=== PATIENT | female | born 2000 | race Caucasian/White ===

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

== ENCOUNTER 2021-04-01 10:03 | Emergency (ER) | payer BC, MEDICAID, SELFPAY ==
[2021-04-01 10:41] VITALS: BP 147/87; PULSE 78; RESP 15; TEMP 37.1; O2SAT 98; BMI 51.6
--- NOTE | 2021-04-01 11:29 | ED_ITS ---
HPI - Abdominal Pain General: Chief Complaint: Abdominal Pain Stated Complaint: ABD PAINS Time Seen by Provider: 04/01/21 11:26 History of Present Illness: HPI narrative: Generalized abdominal pain since last night. Is having some urinary frequency. Has felt nauseous. Has not vomited. Has no diarrhea. Has no fever chills or other related problems. Patient able go to work today due to abdominal discomfort. Patient has history of cholecystectomy MD elicited complaint: abdominal pain Pertinent past history: other (Gallbladder removal) Onset (ago): hour(s) Pain Consistency: constant Location: Diffuse Severity: moderate Quality: aching Radiation: none Migration to: no migration Exacerbating factors: nothing Relieving factors: nothing Associated Symptoms: Reports no associated symptoms; Denies chills, fever(s), nausea and vomiting Review of Systems Const: Denies: fever(s), chills or body aches Eyes: Denies: change in vision or blurry vision ENMT: Denies: throat pain or nasal congestion Card: Denies: chest pain or dyspnea on exertion Resp: Denies: dyspnea, productive cough or non-productive cough GI: Reports: abdominal pain; Denies: nausea or vomiting : Reports: urinary frequency Musc: Denies: extremity pain Skin/Breast: Denies: rash Neuro: Denies: headache(s) Psych: Denies: anxiety or depression [place]/Lymph: Denies: easy bruising PFSH ED PFSH: Family History (Updated 12/25/19 @ 04:07 by Marya Bronson RN) Father Hypertension Mother Hypertension Social History Smoking and tobacco status: never smoked Physical Exam Const: COMMON NORMALS: no acute distress, average body habitus and patient oriented x3 HENMT: COMMON NORMALS: normocephalic HEAD & SCALP: normal to inspection and normocephalic FACE & SINUS: normal facial exam Eye: COMMON NORMALS: conjunctivae normal GENERAL EYE: appearance normal, both eyes and all related structures CONJUNCTIVA: Yes conjunctivae normal Neck/C-Spine: COMMON NORMALS: no JVD Chest: COMMONS NORMALS: normal inspection of the chest Resp: COMMON NORMALS: normal respiratory effort and clear to auscultation bilaterally AUSCULTATION: clear to auscultation bilaterally Cardio: COMMON NORMALS: no JVD, regular rate and regular rhythm RATE: regular rate RHYTHM: regular rhythm GI: COMMON NORMALS: Normal to inspection, nondistended, normoactive bowel sounds present PALPATION: Yes Tenderness to palpation present (GI) (suprapub ic) Extremity: COMMON NORMALS: normal to inspection and full ROM Neuro: COMMON NORMALS: patient oriented x3 Course Vital Signs: Vital signs: Vital Signs Temperature 98.8 F 04/01/21 10:41 Pulse Rate 76 04/01/21 13:34 Respiratory Rate 16 04/01/21 13:34 Blood Pressure 142/94 04/01/21 13:34 Pulse Oximetry 100 04/01/21 13:34 MDM - Abdominal Pain MDM Narrative: Medical decision making narrative: Patient's labs show urinary tract infection consistent with clinical presentation. Diagnosis was discussed with patient. Instruction was provided patient to follow-up primary care provider. Case management was contacted to set up appoint with primary care provider. Lab Data: Labs: Lab Results 04/01/21 04/01/21 04/01/21 11:51 11:51 12:04 WBC 5.1 10^3/uL 10^3/ uL (4.5-13.0) RBC 5.25 10^6/uL 10^6 /uL (4.1-5.3) Hgb 14.0 g/dL g/dL (11.5-15.3) Hct 43.3 % % (37.0-47.0) MCV 82.5 fl fl (81-99) MCH 26.7 pg L pg (28.0-34.0) MCHC 32.3 g/dL g/dL (30.0-36.0) RDW 13.7 % % (12.1-15.1) Plt Count 298 10^3/cmm 10^3 /cmm (130-400) MPV 9.4 fL fL (7.4-10.4) Neut % (Auto) 72.9 % % Lymph % (Auto) 19.5 % % [place] % (Auto) 6.8 % % Eos % (Auto) 0.4 % % Baso % (Auto) 0.2 % % Neut # (Auto) 3.74 10^3/uL 10^3 /uL (1.8-8.0) Lymph # (Auto) 1.0 10^3/uL L 10^ 3/uL (1.5-6.5) [place] # (Auto) 0.4 10^3/uL 10^3/ uL (0.2-0.9) Eos # (Auto) 0.0 10^3/uL 10^3/ uL (0.0-0.8) Baso # (Auto) 0.0 10^3/uL 10^3/ uL (0.0-0.1) Nucleated RBC % (a uto) 0 % % Nucleated RBCs # 0.0 /100WBC /100W BC Sodium Potassium Chloride Carbon Dioxide Anion Gap BUN Creatinine GFR Calculation Glucose Calculated Osmolal ity Calcium Total Bilirubin AST ALT Alkaline Phosphata se Total Protein Albumin Globulin Lipase HCG, Qual Negative (Negative) Urine Color Yellow (Yellow) Urine Appearance Cloudy (CLEAR) Urine pH 5 (5-7) Ur Specific Gravit y 1.020 (1.005-1.030) Urine Protein Neg (Negative) Urine Glucose (UA) Norm (Normal) Urine Ketones 1+ H (Negative) Urine Blood 3+ H (Negative) Urine Nitrate Positive H (Negative) Urine Bilirubin Neg (Negative) Urine Urobilinogen Norm mg/dL mg/dL (Negative) Ur Leukocyte Chikis ase 2+ H (Negative) Urine RBC 5-10 /hpf H /hpf (0-2) Urine WBC Too numerous to c nt /hpf H /hpf (0-5) Ur Squamous Epith Cells 5-10 /hpf H /hpf (0-5) Amorphous Sediment Not Reportable Urine Bacteria 4+ /hpf H /hpf (NONE) Urine Mucus 1+ /hpf /hpf 04/01/21 12:04 WBC RBC Hgb Hct MCV MCH MCHC RDW Plt Count MPV Neut % (Auto) Lymph % (Auto) [place] % (Auto) Eos % (Auto) Baso % (Auto) Neut # (Auto) Lymph # (Auto) [place] # (Auto) Eos # (Auto) Baso # (Auto) Nucleated RBC % (a uto) Nucleated RBCs # Sodium 139 mmol/L mmol/L (136-145) Potassium 3.9 mmol/L mmol/L (3.5-5.1) Chloride 103 mmol/L mmol/L (98-107) Carbon Dioxide 25 mmol/L mmol/L (22-29) Anion Gap 14.9 (5-19) BUN 7 mg/dL mg/dL (6-20) Creatinine 0.6 mg/dL mg/dL (0.5-0.9) GFR Calculation 128.8 mL/min mL/m in (90-130) Glucose 70 mg/dL mg/dL (65-115) Calculated Osmolal ity 284 mOsm/kg L mOs m/kg (285-295) Calcium 9.1 mg/dL mg/dL (8.5-10.5) Total Bilirubin 0.3 mg/dL mg/dL (0.15-1.2) AST 15 U/L U/L (0-32) ALT 11 U/L U/L (0-33) Alkaline Phosphata se 127 IU/L H IU/L (35-105) Total Protein 7.9 g/dL g/dL (6.6-8.7) Albumin 4.1 g/dL g/dL (3.5-5.2) Globulin 3.8 g/dL g/dL (1.3-4.6) Lipase 17 U/L U/L (13-60) HCG, Qual Urine Color Urine Appearance Urine pH Ur Specific Gravit y Urine Protein Urine Glucose (UA) Urine Ketones Urine Blood Urine Nitrate Urine Bilirubin Urine Urobilinogen Ur Leukocyte Chikis ase Urine RBC Urine WBC Ur Squamous Epith Cells Amorphous Sediment Urine Bacteria Urine Mucus Discharge Plan Discharge Patient Disposition: Home Clinical Impression: UTI (urinary tract infection) Qualifiers: Urinary tract infection type: acute cystitis Hematuria presence: with hematuria Qualified Code(s): N30.01 - Acute cystitis with hematuria Condition: Stable Prescriptions: New cephalexin 500 mg capsule 500 mg PO Q8H 7 Days Qty: 21 RF: 0 No Action Tylenol Ex Str Rapid Release 500 mg Tablet 1,000 mg PO Q4H PRN (Reason: Pain) RF: 0 ibuprofen 200 mg Tablet 200 mg PO Q4H PRN (Reason: Pain) RF: 0 Discharge Orders: Discharge ED (Routine); Ordered 04/01/21 Ordered By: Christiano Liang Referrals: Yudelka Arroyo FNP [Primary Care Provider] - Discharge Diet: Usual diet Discharge Activity: Resume usual activity Patient Instructions: Urinary Tract Infection in Women (ED) Activity Restrictions/Additional Instructions: Follow-up with medical provider as directed. Take medications as prescribed. Return to the ER or your medical provider if condition worsens. Please read and understand discharge instructions. If any questions ask please. Follow-up your primary care provider in 1 week and repeat urine lab test to make sure infection is cleared up. Stand Alone Forms: Work/School Release Coding Level of Care Code ED Superintendent Renting Managing for Jazz[employer] Fwd Exam Comprehensive
--- NOTE | 2021-04-01 11:57 | PC.PHAR ---
PT STATES SHE TAKES CARE OF HER OWN MEDICATIONS-PT STATES SHE HAS SOME KIND OF IMPLANT FOR HER CONTROL BUT IS UNSURE OF THE NAME OF IT
[2021-04-01] MEDS: sodium chloride 0.9% 1,000 ML 999 ML IV (12:07)
[2021-04-01 12:12] LABS: Basophils % 0.2 %; Eosinophils % 0.4 %; Hematocrit 43.3 % (37.0-47.0); Lymphocytes % 19.5 %; Mean Corpuscular HGB Conc 32.3 g/dL (30.0-36.0); Mean Corpuscular Hemoglobin 26.7 pg (28.0-34.0); Mean Corpuscular Volume 82.5 fl (81-99); Mean Platelet Volume 9.4 fL (7.4-10.4); Monocytes # 0.4 10^3/uL (0.2-0.9); Monocytes % 6.8 %; Neutrophils # 3.74 10^3/uL (1.8-8.0); Neutrophils % 72.9 %; Nucleated Red Blood Cells % 0 %; Platelet Count 298 10^3/cmm (130-400); Red Blood Count 5.25 10^6/uL (4.1-5.3); Red Cell Distribution Width 13.7 % (12.1-15.1); White Blood Count 5.1 10^3/uL (4.5-13.0)
[2021-04-01 12:16] LABS: HCG Qualitative Urine. Negative (Negative)
[2021-04-01 12:17] LABS: Add Urine Microscopic? YES; Bilirubin Urine Neg (Negative); Blood Urine 3+ (Negative); Glucose Urine UA Norm (Normal); Ketones Urine 1+ (Negative); Leukocyte Esterase Urine 2+ (Negative); Nitrate Urine Positive (Negative); Protein Urine Neg (Negative); Urine Appearance Cloudy (CLEAR); Urine Color Yellow (Yellow); Urobilinogen Urine Norm (Negative); pH Urine 5 (5-7)
[2021-04-01 12:34] LABS: Add Urine Culture? Yes; Bacteria Urine 4+ /hpf; Mucus Urine 1+ /hpf; WBC Urine TOO NUMEROUS TO CNT /hpf (0-5)
[2021-04-01] MEDS: ondansetron 4 MG Tablet PO (12:52)
[2021-04-01] MEDS: cephALEXin 500 mg Capsule PO (12:52)
[2021-04-01 12:54] LABS: Alanine Aminotransferase 11 U/L (0-33); Albumin Level 4.1 g/dL (3.5-5.2); Alkaline Phosphatase 127 IU/L (35-105); Anion Gap 14.9 (5-19); Aspartate Amino Transferase 15 U/L (0-32); Blood Urea Nitrogen 7 mg/dL (6-20); Calcium 9.1 mg/dL (8.5-10.5); Carbon Dioxide 25 mmol/L (22-29); Chloride 103 mmol/L (98-107); Globulin 3.8 g/dL (1.3-4.6); Glomerular Filtration Rate 128.8 mL/min (90-130); Glucose 70 mg/dL (65-115); Lipase 17 U/L (13-60); Osmolality Calculated 284 mOsm/kg (285-295); Potassium 3.9 mmol/L (3.5-5.1); Sodium 139 mmol/L (136-145); Total Bilirubin 0.3 mg/dL (0.15-1.2); Total Protein 7.9 g/dL (6.6-8.7)
[2021-04-01 13:34] VITALS: BP 142/94; PULSE 76; RESP 16; O2SAT 100
== END 2021-04-01 13:37 | disposition home or self-care (01) ==
PROVIDERS: Emergency Provider Nurse Practitioner Family; PCP Registered Nurse
DX: N30.01 Acute cystitis with hematuria (principal)
CPT/HCPCS: 80053; 81001; 81025; 83690; 85025; 87077; 87086; 87186; 96360; 99283; J7030; Q0162

== ENCOUNTER 2021-04-03 08:28 | Emergency (ER) | payer BC, MEDICAID, SELFPAY ==
[2021-04-03 08:53] VITALS: BP 108/76; PULSE 90; RESP 19; TEMP 36.8; O2SAT 97; BMI 51.6
--- NOTE | 2021-04-03 09:01 | W.ED.ABDPA2 ---
Documented by User: IDRIS Calzada 04/03/21 14:59 HPI - Abdominal Pain General: Chief Complaint: Abdominal Pain Stated Complaint: ABD PAIN:SEEN YESTERDAY FOR SAME/WORSE TODAY Time Seen by Provider: 04/03/21 08:46 History of Present Illness: HPI narrative: Patient is a 20-year-old female who comes to the ED with abdominal pain. Patient was seen here on April 01 for same complaint. She was diagnosed with a UTI and discharged home with cephalexin. Patient says the prescription for cephalexin was not in her discharge paperwork so she was discharged home without any antibiotic and has not taken an antibiotic. Patient says her symptoms first started 4 days ago. She has some diarrhea and nausea but denies any emesis. She has decreased appetite and says any food makes her symptoms worse. Last night she had multiple episodes of diarrhea throughout the night was unable to get much sleep. She says her abdominal pain is generalized throughout her abdomen but endorses some right-sided tenderness along with epigastric pain as well. She has not had any episodes of emesis but states she feels very nauseous. Denies any fever, chills, dysuria, hematuria, blood in stool. She has had her gallbladder removed. Associated Symptoms: Reports diarrhea and nausea; Denies chills, constipation, dysuria, fever(s), hematochezia, hematuria and vomiting Review of Systems Const: Denies: fever(s), chills or fatigue Eyes: Denies: change in vision or eye discomfort ENMT: Denies: throat pain, odynophagia, nasal discharge or nasal congestion Card: Denies: chest pain, palpitations, edema, swelling of feet/ankles, dyspnea on exertion or orthopnea Resp: Denies: dyspnea, productive cough or non-productive cough GI: Reports: abdominal pain, nausea and diarrhea; Denies: vomiting, constipation or hematochezia : Denies: flank pain, dysuria or hematuria Musc: Denies: neck pain, back pain or extremity swelling Skin/Breast: Denies: rash or new lesions Neuro: Denies: headache(s), numbness in extremities or weakness in extremities PFS ED PFSH: Surgical History History of cholecystectomy Family History Father Hypertension Mother Hypertension Social History Smoking and tobacco status: never smoked Physical Exam Const: COMMON NORMALS: no acute distress, patient oriented x3 and alert GENERAL APPEARANCE: cooperative and comfortable NUTRITIONAL APPEARANCE: obese HENMT: COMMON NORMALS: normocephalic HEAD & SCALP: normocephalic MOUTH: Normal oral and palatal mucosa present THROAT: posterior oropharynx normal and uvula midline Eye: COMMON NORMALS: Equal, round and reactive pupils present PUPIL: Yes Equal, round and reactive pupils present Neck/C-Spine: COMMON NORMALS: supple GENERAL: Yes normal visual inspection Resp: COMMON NORMALS: normal respiratory effort, No retractions, No use of accessory muscles and clear to auscultation bilaterally AUSCULTATION: clear to auscultation bilaterally Cardio: COMMON NORMALS: regular rate, regular rhythm, S1 normal heart sound present, S2 normal heart sound present, No gallops present (Cardio), No clicks present (Cardio), No murmurs present (Cardio) and Peripheral pulses 2+ throughout RATE: regular rate RHYTHM: regular rhythm HEART SOUNDS: S1 normal heart sound present and S2 normal heart sound present PERIPHERAL PULSES: Peripheral pulses 2+ throughout GI: COMMON NORMALS: Normal to inspection, nondistended, normoactive bowel sounds present, Soft to palpation and no masses INSPECTION: Yes central obesity PALPATION: Yes Soft to palpation and Yes Tenderness to palpation present (GI) (generalized abdominal tenderness) Details: RLQ (Positive McBurney's point) and other (epigastric tenderness) : COMMON NORMALS: Yes no CVA tenderness BLADDER/KIDNEY EXAM: Yes no CVA tenderness Back/Pelvis: COMMON NORMALS: no CVA tenderness Neuro: COMMON NORMALS: patient oriented x3 SENSORIUM/ORIENTATION: Yes alert GAIT: Yes Normal gait present Skin: GENERAL SKIN EXAM: dry skin Course Reevaluation(s): Reevaluation #1: Patient symptoms improved after GI cocktail. Time: 11:31 Vital Signs: Vital signs: Vital Signs Temperature 98.2 F 04/03/21 08:53 Pulse Rate 72 04/03/21 11:58 Respiratory Rate 18 04/03/21 09:48 Blood Pressure 108/76 04/03/21 08:53 Pulse Oximetry 98 04/03/21 11:58 MDM - Abdominal Pain MDM Narrative: Medical decision making narrative: Patient is a 20 female comes to the ED with abdominal pain nausea and diarrhea. Patient was seen here in the ED 2 days ago on April 01 for same complaint. Patient was seen here in the ED she has been having symptoms for the past 4 days. Abdominal pain is located in the epigastric region and radiates down the right side of her abdomen. Vitals are stable. Exam shows some right-sided abdominal tenderness and epigastric tenderness. The rest of exam was benign. Patient appears nontoxic and in no acute distress or pain. Labs are unremarkable. CT of abdomen pelvis shows no acute findings, but did note a right ovarian cyst. Patient was given IV fluids, morphine and Zofran and symptoms improved. She was also given an dose of GI cocktail and her abdominal pain improved greatly. Patient was diagnosed with gastritis and ovarian cyst. She was discharged home with a prescription for pantoprazole and Zofran. She was told to follow-up with her PCP in 7 to 10 days for reevaluation. Return to ED precautions given. Patient understood agree with plan. Lab Data: Attestation: I reviewed the patient's lab results. Labs: Lab Results 04/03/21 04/03/21 04/03/21 09:21 09:21 09:21 WBC 6.8 10^3/uL 10^3/ uL (4.5-13.0) RBC 5.29 10^6/uL 10^6 /uL (4.1-5.3) Hgb 13.9 g/dL g/dL (11.5-15.3) Hct 43.3 % % (37.0-47.0) MCV 81.9 fl fl (81-99) MCH 26.3 pg L pg (28.0-34.0) MCHC 32.1 g/dL g/dL (30.0-36.0) RDW 13.7 % % (12.1-15.1) Plt Count 286 10^3/cmm 10^3 /cmm (130-400) MPV 9.6 fL fL (7.4-10.4) Neut % (Auto) 70.9 % % Lymph % (Auto) 18.1 % % [place] % (Auto) 10.7 % % Eos % (Auto) 0.1 % % Baso % (Auto) 0.1 % % Neut # (Auto) 4.84 10^3/uL 10^3 /uL (1.8-8.0) Lymph # (Auto) 1.2 10^3/uL L 10^ 3/uL (1.5-6.5) [place] # (Auto) 0.7 10^3/uL 10^3/ uL (0.2-0.9) Eos # (Auto) 0.0 10^3/uL 10^3/ uL (0.0-0.8) Baso # (Auto) 0.0 10^3/uL 10^3/ uL (0.0-0.1) Nucleated RBC % (a uto) 0 % % Nucleated RBCs # 0.0 /100WBC /100W BC Sodium 137 mmol/L mmol/L (136-145) Potassium 3.6 mmol/L mmol/L (3.5-5.1) Chloride 103 mmol/L mmol/L (98-107) Carbon Dioxide 21 mmol/L L mmol/ L (22-29) Anion Gap 16.6 (5-19) BUN 5 mg/dL L mg/dL (6-20) Creatinine 0.6 mg/dL mg/dL (0.5-0.9) GFR Calculation 128.8 mL/min mL/m in (90-130) Glucose 83 mg/dL mg/dL (65-115) Calculated Osmolal ity 280 mOsm/kg L mOs m/kg (285-295) Calcium 9.2 mg/dL mg/dL (8.5-10.5) Total Bilirubin 0.2 mg/dL mg/dL (0.15-1.2) AST 14 U/L U/L (0-32) ALT 13 U/L U/L (0-33) Alkaline Phosphata se 108 IU/L H IU/L (35-105) Total Protein 7.8 g/dL g/dL (6.6-8.7) Albumin 4.1 g/dL g/dL (3.5-5.2) Globulin 3.7 g/dL g/dL (1.3-4.6) Lipase 18 U/L U/L (13-60) HCG, Qual Negative (Negative) Urine Color Urine Appearance Urine pH Ur Specific Gravit y Urine Protein Urine Glucose (UA) Urine Ketones Urine Blood Urine Nitrate Urine Bilirubin Urine Urobilinogen Ur Leukocyte Chikis ase Urine RBC Urine WBC Ur Squamous Epith Cells Calcium Oxalate Cr ystal Amorphous Sediment Urine Bacteria Urine Mucus 04/03/21 09:40 WBC RBC Hgb Hct MCV MCH MCHC RDW Plt Count MPV Neut % (Auto) Lymph % (Auto) [place] % (Auto) Eos % (Auto) Baso % (Auto) Neut # (Auto) Lymph # (Auto) [place] # (Auto) Eos # (Auto) Baso # (Auto) Nucleated RBC % (a uto) Nucleated RBCs # Sodium Potassium Chloride Carbon Dioxide Anion Gap BUN Creatinine GFR Calculation Glucose Calculated Osmolal ity Calcium Total Bilirubin AST ALT Alkaline Phosphata se Total Protein Albumin Globulin Lipase HCG, Qual Urine Color Yellow (Yellow) Urine Appearance Cloudy (CLEAR) Urine pH 5 (5-7) Ur Specific Gravit y 1.025 (1.005-1.030) Urine Protein Neg (Negative) Urine Glucose (UA) Norm (Normal) Urine Ketones Negative (Negative) Urine Blood 2+ H (Negative) Urine Nitrate Negative (Negative) Urine Bilirubin 1+ H (Negative) Urine Urobilinogen Norm mg/dL mg/dL (Negative) Ur Leukocyte Chikis ase Negative (Negative) Urine RBC 0-4 /hpf H /hpf (0-2) Urine WBC None /hpf /hpf (0-5) Ur Squamous Epith Cells 40-55 /hpf H /hpf (0-5) Calcium Oxalate Cr ystal 25-40 /hpf H /hpf Amorphous Sediment Not Reportable Urine Bacteria 1+ /hpf H /hpf (NONE) Urine Mucus Trace /hpf /hpf Imaging Data ^: CT Abd/Pel: Attestation: I personally reviewed and interpreted this imaging study as follows: Radiologist's impression: [address] [address] [address] Scan Report Signed Patient: Meka Nichols Unit #: [id number] : 2000 Age/Sex: 20 / F ADM Date: 04/03/21 Loc: ER Room/Bed: Attending Dr: Ordering Provider/Ordering MD: Sandoval Reyes Date of Service: 04/03/21 Procedure(s): CT abdomen pelvis w con* [id number] Accession Number(s): [id number] Report Number: [id number] WS: [id number] CT ABDOMEN AND PELVIS WITH CONTRAST HISTORY: right sided abdominal pain, nausea and diarrhea TECHNIQUE: Imaging performed of the abdomen and pelvis with IV contrast. Single phase imaging of the abdomen. Coronal and sagittal reformats are submitted. All CT scans at [facility] use at least one of these dose optimization techniques: automated exposure control; mA and/or kV adjustment per patient size (includes targeted exams where dose is matched to clinical indication); or iterative reconstruction. IV CONTRAST: Omnipaque 350; 95 mL IV. Oral contrast: No DLP: 1892.9 mGy.cm COMPARISON: 01/19/2017 Lower thorax: Lung bases are clear. Heart is normal size. No hiatal hernia. Liver/biliary system: Normal size with no intrahepatic dilatation. Gallbladder: Status post cholecystectomy. Pancreas: Normal size pancreas and pancreatic duct. No adjacent inflammation. Spleen: Normal size spleen. No mass or infarct. Adrenal glands: Normal. Right kidney: Normal. Left kidney: Normal. Aorta: Normal. Lymphadenopathy: None. Free fluid: None. GI tract: Normal appendix. No GI tract obstruction. No mucosal thickening. Abdominal wall: Unremarkable abdominal wall. No hernia. Pelvis: Uterus is retroverted. There are 2 cysts within the RIGHT adnexa. The largest measuring 3.6 x 2.2 cm. Bones: Unremarkable. CT/CT abdomen pelvis w con* [id number] IMPRESSION: 1. Normal appendix. 2. Prior cholecystectomy. 3. No GI tract obstruction. 4. RIGHT adnexal mildly complex cyst. The largest measures 3.6 x 2.2 cm. Dictated By: Meliza Taveras DO Signed By: Meliza Taveras DO Signed Date/Time: 04/03/21 1003 DD/ [id number] Discharge Plan Discharge Patient Disposition: Home Clinical Impression: Gastritis Qualifiers: Gastritis type: unspecified gastritis Chronicity: acute Gastritis bleeding: without bleeding Qualified Code(s): K29.00 - Acute gastritis without bleeding Ovarian cyst Qualifiers: Laterality: right Qualified Code(s): N83.201 - Unspecified ovarian cyst, right side Condition: Stable Prescriptions: New pantoprazole 40 mg tablet,delayed release (DR/EC) 40 mg PO DAILY 28 Days Qty: 30 RF: 0 ondansetron 4 mg tablet,disintegrating 4 mg PO Q8H PRN (Reason: nausea and vomiting) Qty: 20 RF: 0 No Action Tylenol Ex Str Rapid Release 500 mg Tablet 1,000 mg PO Q4H PRN (Reason: Pain) RF: 0 ibuprofen 200 mg Tablet 200 mg PO Q4H PRN (Reason: Pain) RF: 0 cephalexin 500 mg capsule 500 mg PO Q8H 7 Days Qty: 21 RF: 0 Discharge Orders: Discharge ED (Routine); Ordered 04/03/21 Ordered By: Sandoval Reyes Referrals: Yudelka Arroyo FNP [Primary Care Provider] - Discharge Diet: Advance as tolerated Discharge Activity: Increase activity as tolerated Patient Instructions: Ovarian Cyst (ED), Gastritis (ED), GERD (Gastroesophageal Reflux Disease) in Children (ED) Activity Restrictions/Additional Instructions: Follow-up with medical provider as directed in 5-7 days for reevaluation. Take medications as prescribed. Return to the ER or your medical provider if condition worsens. Please read and understand discharge instructions. Thank you for choosing [facility] for your healthcare needs today. Please realize this is an emergency room and that we are providing you with a medical screening exam and this may not be complete and all inclusive of all the testing and or work up that you may need to determine your ailment or severity of your illness. It is very important that you follow up as instructed or that you return to the Emergency Department should you have concerns or if your condition changes or worsens in any way. Stand Alone Forms: Work/School Release Coding Level of Care Code ED Extractor Operator Solvent Process for Chg Fwd Exam Comprehensive Documented by User: Ander Draper DO 04/03/21 18:31 HPI - Abdominal Pain General: Chief Complaint: Abdominal Pain Stated Complaint: ABD PAIN:SEEN YESTERDAY FOR SAME/WORSE TODAY Time Seen by Provider: 04/03/21 08:46 PFSH ED PFSH: Surgical History History of cholecystectomy Family History Father Hypertension Mother Hypertension Social History Smoking and tobacco status: never smoked Course Vital Signs: Vital signs: Vital Signs Temperature 98.2 F 04/03/21 08:53 Pulse Rate 72 04/03/21 11:58 Respiratory Rate 18 04/03/21 09:48 Blood Pressure 108/76 04/03/21 08:53 Pulse Oximetry 98 04/03/21 11:58 MDM - Abdominal Pain MDM Narrative: Medical decision making narrative: Chart reviewed agree with assessment and plan by midlevel. Lab Data: Labs: Lab Results 04/03/21 04/03/21 04/03/21 09:21 09:21 09:21 WBC 6.8 10^3/uL 10^3/ uL (4.5-13.0) RBC 5.29 10^6/uL 10^6 /uL (4.1-5.3) Hgb 13.9 g/dL g/dL (11.5-15.3) Hct 43.3 % % (37.0-47.0) MCV 81.9 fl fl (81-99) MCH 26.3 pg L pg (28.0-34.0) MCHC 32.1 g/dL g/dL (30.0-36.0) RDW 13.7 % % (12.1-15.1) Plt Count 286 10^3/cmm 10^3 /cmm (130-400) MPV 9.6 fL fL (7.4-10.4) Neut % (Auto) 70.9 % % Lymph % (Auto) 18.1 % % [place] % (Auto) 10.7 % % Eos % (Auto) 0.1 % % Baso % (Auto) 0.1 % % Neut # (Auto) 4.84 10^3/uL 10^3 /uL (1.8-8.0) Lymph # (Auto) 1.2 10^3/uL L 10^ 3/uL (1.5-6.5) [place] # (Auto) 0.7 10^3/uL 10^3/ uL (0.2-0.9) Eos # (Auto) 0.0 10^3/uL 10^3/ uL (0.0-0.8) Baso # (Auto) 0.0 10^3/uL 10^3/ uL (0.0-0.1) Nucleated RBC % (a uto) 0 % % Nucleated RBCs # 0.0 /100WBC /100W BC Sodium 137 mmol/L mmol/L (136-145) Potassium 3.6 mmol/L mmol/L (3.5-5.1) Chloride 103 mmol/L mmol/L (98-107) Carbon Dioxide 21 mmol/L L mmol/ L (22-29) Anion Gap 16.6 (5-19) BUN 5 mg/dL L mg/dL (6-20) Creatinine 0.6 mg/dL mg/dL (0.5-0.9) GFR Calculation 128.8 mL/min mL/m in (90-130) Glucose 83 mg/dL mg/dL (65-115) Calculated Osmolal ity 280 mOsm/kg L mOs m/kg (285-295) Calcium 9.2 mg/dL mg/dL (8.5-10.5) Total Bilirubin 0.2 mg/dL mg/dL (0.15-1.2) AST 14 U/L U/L (0-32) ALT 13 U/L U/L (0-33) Alkaline Phosphata se 108 IU/L H IU/L (35-105) Total Protein 7.8 g/dL g/dL (6.6-8.7) Albumin 4.1 g/dL g/dL (3.5-5.2) Globulin 3.7 g/dL g/dL (1.3-4.6) Lipase 18 U/L U/L (13-60) HCG, Qual Negative (Negative) Urine Color Urine Appearance Urine pH Ur Specific Gravit y Urine Protein Urine Glucose (UA) Urine Ketones Urine Blood Urine Nitrate Urine Bilirubin Urine Urobilinogen Ur Leukocyte Chikis ase Urine RBC Urine WBC Ur Squamous Epith Cells Calcium Oxalate Cr ystal Amorphous Sediment Urine Bacteria Urine Mucus 04/03/21 09:40 WBC RBC Hgb Hct MCV MCH MCHC RDW Plt Count MPV Neut % (Auto) Lymph % (Auto) [place] % (Auto) Eos % (Auto) Baso % (Auto) Neut # (Auto) Lymph # (Auto) [place] # (Auto) Eos # (Auto) Baso # (Auto) Nucleated RBC % (a uto) Nucleated RBCs # Sodium Potassium Chloride Carbon Dioxide Anion Gap BUN Creatinine GFR Calculation Glucose Calculated Osmolal ity Calcium Total Bilirubin AST ALT Alkaline Phosphata se Total Protein Albumin Globulin Lipase HCG, Qual Urine Color Yellow (Yellow) Urine Appearance Cloudy (CLEAR) Urine pH 5 (5-7) Ur Specific Gravit y 1.025 (1.005-1.030) Urine Protein Neg (Negative) Urine Glucose (UA) Norm (Normal) Urine Ketones Negative (Negative) Urine Blood 2+ H (Negative) Urine Nitrate Negative (Negative) Urine Bilirubin 1+ H (Negative) Urine Urobilinogen Norm mg/dL mg/dL (Negative) Ur Leukocyte Chikis ase Negative (Negative) Urine RBC 0-4 /hpf H /hpf (0-2) Urine WBC None /hpf /hpf (0-5) Ur Squamous Epith Cells 40-55 /hpf H /hpf (0-5) Calcium Oxalate Cr ystal 25-40 /hpf H /hpf Amorphous Sediment Not Reportable Urine Bacteria 1+ /hpf H /hpf (NONE) Urine Mucus Trace /hpf /hpf Discharge Plan Discharge Patient Disposition: Home Clinical Impression: Gastritis Qualifiers: Gastritis type: unspecified gastritis Chronicity: acute Gastritis bleeding: without bleeding Qualified Code(s): K29.00 - Acute gastritis without bleeding Ovarian cyst Qualifiers: Laterality: right Qualified Code(s): N83.201 - Unspecified ovarian cyst, right side Condition: Stable Prescriptions: New pantoprazole 40 mg tablet,delayed release (DR/EC) 40 mg PO DAILY 28 Days Qty: 30 RF: 0 ondansetron 4 mg tablet,disintegrating 4 mg PO Q8H PRN (Reason: nausea and vomiting) Qty: 20 RF: 0 No Action Tylenol Ex Str Rapid Release 500 mg Tablet 1,000 mg PO Q4H PRN (Reason: Pain) RF: 0 ibuprofen 200 mg Tablet 200 mg PO Q4H PRN (Reason: Pain) RF: 0 cephalexin 500 mg capsule 500 mg PO Q8H 7 Days Qty: 21 RF: 0 Discharge Orders: Discharge ED (Routine); Ordered 04/03/21 Ordered By: Sandoval Reyes Referrals: Yudelka Arroyo FNP [Primary Care Provider] - Discharge Diet: Advance as tolerated Discharge Activity: Increase activity as tolerated Patient Instructions: Ovarian Cyst (ED), Gastritis (ED), GERD (Gastroesophageal Reflux Disease) in Children (ED) Activity Restrictions/Additional Instructions: Follow-up with medical provider as directed in 5-7 days for reevaluation. Take medications as prescribed. Return to the ER or your medical provider if condition worsens. Please read and understand discharge instructions. Thank you for choosing [facility] for your healthcare needs today. Please realize this is an emergency room and that we are providing you with a medical screening exam and this may not be complete and all inclusive of all the testing and or work up that you may need to determine your ailment or severity of your illness. It is very important that you follow up as instructed or that you return to the Emergency Department should you have concerns or if your condition changes or worsens in any way. Stand Alone Forms: Work/School Release Coding Level of Care Code ED Extractor Operator Solvent Process for [place] Fwd Exam Comprehensive
--- NOTE | 2021-04-03 09:08 | CT_ITS ---
WS: [id number] CT ABDOMEN AND PELVIS WITH CONTRAST HISTORY: right sided abdominal pain, nausea and diarrhea TECHNIQUE: Imaging performed of the abdomen and pelvis with IV contrast. Single phase imaging of the abdomen. Coronal and sagittal reformats are submitted. All CT scans at [facility] use at [address] one of these dose optimization techniques: automated exposure control; mA and/or kV adjustment per patient size (includes targeted exams where dose is matched to clinical indication); or iterative re construction. IV CONTRAST: Omnipaque 350; 95 mL IV. Oral contrast: No DLP: 1892.9 mGy.cm COMPARISON: 01/19/2017 Lower thorax: Lung bases are clear. Heart is normal size. No hiatal hernia. Liver/biliary system: Normal size with no intrahepatic dilatation. Gallbladder: Status post cholecystectomy. Pancreas: Normal size pancreas and pancreatic duct. No adjacent inflammation. Spleen: Normal size spleen. No mass or infarct. Adrenal glands: Normal. Right kidney: Normal. Left kidney: Normal. Aorta: Normal. Lymphadenopathy: None. Free fluid: None. GI tract: Normal appendix. No GI tract obstruction. No mucosal thickening. Abdominal wall: Unremarkable abdominal wall. No hernia. Pelvis: Uterus is retroverted. There are 2 cysts within the RIGHT adnexa. The largest measuring 3.6 x 2.2 cm. Bones: Unremarkable. CT/CT abdomen pelvis w con* [id number] IMPRESSION: 1. Normal appendix. 2. Prior cholecystectomy. 3. No GI tract obstruction. 4. RIGHT adnexal mildly complex cyst. The largest measures 3.6 x 2.2 cm.
[2021-04-03 09:31] LABS: Basophils % 0.1 %; Eosinophils % 0.1 %; Hematocrit 43.3 % (37.0-47.0); Hemoglobin 13.9 g/dL (11.5-15.3); Lymphocytes # 1.2 10^3/uL (1.5-6.5); Lymphocytes % 18.1 %; Mean Corpuscular HGB Conc 32.1 g/dL (30.0-36.0); Mean Corpuscular Hemoglobin 26.3 pg (28.0-34.0); Mean Corpuscular Volume 81.9 fl (81-99); Mean Platelet Volume 9.6 fL (7.4-10.4); Monocytes # 0.7 10^3/uL (0.2-0.9); Monocytes % 10.7 %; Neutrophils # 4.84 10^3/uL (1.8-8.0); Neutrophils % 70.9 %; Nucleated Red Blood Cells % 0 %; Platelet Count 286 10^3/cmm (130-400); Red Blood Count 5.29 10^6/uL (4.1-5.3); Red Cell Distribution Width 13.7 % (12.1-15.1); White Blood Count 6.8 10^3/uL (4.5-13.0)
[2021-04-03 09:48] VITALS: PULSE 76; RESP 18; O2SAT 98
[2021-04-03 09:49] LABS: Alanine Aminotransferase 13 U/L (0-33); Albumin Level 4.1 g/dL (3.5-5.2); Alkaline Phosphatase 108 IU/L (35-105); Anion Gap 16.6 (5-19); Aspartate Amino Transferase 14 U/L (0-32); Blood Urea Nitrogen 5 mg/dL (6-20); Calcium 9.2 mg/dL (8.5-10.5); Carbon Dioxide 21 mmol/L (22-29); Chloride 103 mmol/L (98-107); Globulin 3.7 g/dL (1.3-4.6); Glomerular Filtration Rate 128.8 mL/min (90-130); Glucose 83 mg/dL (65-115); HCG, Serum Qual Negative (Negative); Lipase 18 U/L (13-60); Osmolality Calculated 280 mOsm/kg (285-295); Potassium 3.6 mmol/L (3.5-5.1); Sodium 137 mmol/L (136-145); Total Bilirubin 0.2 mg/dL (0.15-1.2); Total Protein 7.8 g/dL (6.6-8.7)
[2021-04-03] MEDS: morphine 4 mg/mL SDV 1 mL IVP (09:50)
[2021-04-03] MEDS: ondansetron 2 mg/ML SDV 2 mL 4 MG IVP (09:51)
[2021-04-03] MEDS: sodium chloride 0.9% 1,000 ML 999 ML IV (09:51)
[2021-04-03] MEDS: iohexol 350 mg/mL 100 mL Btl IV (09:52)
[2021-04-03 10:30] LABS: Glucose Urine UA Norm (Normal); Ketones Urine Negative (Negative); Protein Urine Neg (Negative); Specific Gravity, Urine 1.025 (1.005-1.030); Urine Appearance Cloudy (CLEAR); Urine Color Yellow (Yellow); pH Urine 5 (5-7)
[2021-04-03] MEDS: lidocaine 2% viscous 15 ML, aluminum-mag hydrox-simethicon 30 ML, sucralfate oral liq 1 GM PO (10:30)
[2021-04-03 10:31] LABS: Add Urine Microscopic? YES; Bilirubin Urine 1+ (Negative); Blood Urine 2+ (Negative); Leukocyte Esterase Urine Negative (Negative); Nitrate Urine Negative (Negative); Urobilinogen Urine Norm (Negative)
[2021-04-03 10:32] LABS: Add Urine Culture? No; Bacteria Urine 1+ /hpf; Calcium Oxalate Crystals Urine 25-40 /hpf; Mucus Urine TRACE /hpf; RBC Urine 0-4 /hpf (0-2); Squamous Epithelial Cell Urine 40-55 /hpf (0-5)
[2021-04-03 11:58] VITALS: PULSE 72; O2SAT 98
== END 2021-04-03 12:00 | disposition home or self-care (01) ==
PROVIDERS: Emergency Provider Physician Assistant; PCP Registered Nurse
DX: K29.00 Acute gastritis without bleeding (principal); N83.201 Unspecified ovarian cyst, right side
CPT/HCPCS: 36415; 74177; 80053; 81001; 83690; 84703; 85025; 87040; 96361; 96374; 96375; 99284; J2270; J2405; J7030; Q9967

== ENCOUNTER 2021-06-28 17:28 | Emergency (ER) | payer BC, MEDICAID, SELFPAY ==
[2021-06-28 17:50] VITALS: BP 142/89; PULSE 87; RESP 18; TEMP 37.1; O2SAT 98; BMI 50.1
--- NOTE | 2021-06-28 18:53 | ED_ITS ---
HPI - General Adult General: Chief complaint: General Medical Stated complaint: Unable to move neck Time Seen by Provider: 06/28/21 18:46 History of Present Illness: Patient is a 20-year-old female comes to the ED with right-sided neck pain. Patient received her second Moderna COVID-19 shot and right arm on Tuesday. She has had neck pain on right side that started yesterday. Denies any fever, chills, nausea/vomiting, neuro symptoms. She says it hurts whenever she rotates her head to the right side, but she still has mostly full range of motion. Denies any other injury Associated symptoms: Reports headache(s); Deny chest pain, dyspnea, nausea, rash, palpitations or vomiting Review of Systems Const: Denies: fever(s), chills or fatigue Eyes: Denies: change in vision or eye discomfort ENMT: Denies: throat pain, odynophagia, nasal discharge or nasal congestion Card: Denies: chest pain, palpitations, edema, swelling of feet/ankles, dyspnea on exertion or orthopnea Resp: Denies: dyspnea, productive cough or non-productive cough GI: Denies: abdominal pain, nausea, vomiting, diarrhea, constipation or hematochezia : Denies: flank pain, dysuria or hematuria Musc: Reports: neck pain; Denies: back pain or extremity swelling Skin/Breast: Denies: rash or new lesions Neuro: Reports: headache(s); Denies: numbness in extremities or weakness in extremities PFS ED PFSH: Medical History No pertinent past medical history Surgical History History of cholecystectomy Family History Father Hypertension Mother Hypertension Social History Smoking and tobacco status: never smoked Female Reproductive History: Date of last menstrual period: 06/02/21 Physical Exam Const: COMMON NORMALS: no acute distress, patient oriented x3 and alert HENMT: COMMON NORMALS: normocephalic HEAD & SCALP: normocephalic MOUTH: Normal oral and palatal mucosa present THROAT: posterior oropharynx normal and uvula midline Neck/C-Spine: COMMON NORMALS: supple and no meningeal signs GENERAL: Yes normal visual inspection CERVICAL SPINE: Yes cervical ROM normal, Yes pain with cervical ROM with rotation to the right (pain), No Cervical spine tenderness, Yes Paracervical muscle tenderness right and Yes Trapezius muscle tenderness right Resp: COMMON NORMALS: normal respiratory effort, No retractions, No use of accessory muscles and clear to auscultation bilaterally AUSCULTATION: clear to auscultation bilaterally Cardio: COMMON NORMALS: regular rate, regular rhythm, S1 normal heart sound present, S2 normal heart sound present, No gallops present (Cardio), No clicks present (Cardio), No murmurs present (Cardio) and Peripheral pulses 2+ throughout RATE: regular rate RHYTHM: regular rhythm HEART SOUNDS: S1 normal heart sound present and S2 normal heart sound present PERIPHERAL PULSES: Peripheral pulses 2+ throughout GI: COMMON NORMALS: Normal to inspection, nondistended, normoactive bowel sounds present, Soft to palpation, non-tender and no masses PALPATION: Yes Soft to palpation : COMMON NORMALS: Yes no CVA tenderness BLADDER/KIDNEY EXAM: Yes no CVA tenderness Back/Pelvis: COMMON NORMALS: no CVA tenderness Extremity: COMMON NORMALS: normal to inspection Neuro: COMMON NORMALS: patient oriented x3 and moves all extremities SEN SORIUM/ORIENTATION: Yes alert MENINGEAL SIGNS: Yes no meningeal signs Skin: GENERAL SKIN EXAM: dry skin Course Vital Signs: Vital signs: Vital Signs Temperature 98.1 F 06/28/21 20:07 Pulse Rate 77 06/28/21 20:07 Respiratory Rate 18 06/28/21 20:07 Blood Pressure 144/86 06/28/21 20:07 Pulse Oximetry 99 06/28/21 20:07 [facility] - General Adult Medical Decision Making Patient is a 20-year-old female who comes to the ED with neck pain after getting her second COVID-19 Moderna vaccination. She got the vaccination in right arm 2 days ago and has had right sided neck pain ever since. She has full range of motion with neck but does have some pain when rotating head to the right side. She has some right paracervical muscle tenderness along with right trapezius muscle tenderness. Rest of exam is benign and patient appears healthy and in no acute distress. Vitals are stable. Patient was given a dose of Toradol while here in the ED to help with pain. She was diagnosed with COVID-19 vaccination side effect and discharged home. She was told to follow-up with PCP in 5 to 7 days for reevaluation. Return to ED precautions given. Patient understood and agreed with plan. Discharge Plan Discharge Patient Disposition: Home Clinical Impression: Vaccination side effects Qualifiers: Encounter type: initial encounter Qualified Code(s): T50.Z95A - Adverse effect of other vaccines and biological substances, initial encounter Condition: Stable Prescriptions: No Action Tylenol Ex Str Rapid Release 500 mg Tablet 1,000 mg PO Q4H PRN (Reason: Pain) 0RF ibuprofen 200 mg Tablet 200 mg PO Q4H PRN (Reason: Pain) 0RF ondansetron 4 mg tablet,disintegrating 4 mg PO Q8H PRN (Reason: nausea and vomiting) Qty: 20 0RF Discharge Orders: Discharge ED (Routine); Ordered 06/28/21 Ordered By: Sandoval Reyes Referrals: Yudelka Arroyo FNP [Primary Care Provider] - Discharge Diet: Regular Discharge Activity: Resume usual activity Activity Restrictions/Additional Instructions: Follow-up with medical provider as directed in 5 to 7 days for reevaluation. Take [id number] ibuprofen or Tylenol for pain. Ply cold pack on sore area of neck to help with symptoms. Return to the ER or your medical provider if condition worsens. Please read and understand discharge instructions. Thank you for choosing [facility] for your healthcare needs today. Please realize this is an emergency room and that we are providing you with a medical screening exam and this may not be complete and all inclusive of all the testing and or work up that you may need to determine your ailment or severity of your illness. It is very important that you follow up as instructed or that you return to the Emergency Department should you have concerns or if your condition changes or worsens in any way. Coding Level of Care Code ED Coin Machine Service Repairer for [facility] Vera Exam Comprehensive
[2021-06-28] MEDS: ketorolac 60 mg/2 mL INJ IM (20:04)
[2021-06-28 20:07] VITALS: BP 144/86; PULSE 77; RESP 18; TEMP 36.7; O2SAT 99
== END 2021-06-28 20:11 | disposition home or self-care (01) ==
PROVIDERS: Emergency Provider Physician Assistant; PCP Registered Nurse
DX: T88.7XXA Unspecified adverse effect of drug or medicament, initial encounter (principal); T50.B95A Adverse effect of other viral vaccines, initial encounter
CPT/HCPCS: 96372; 99283; J1885

== ENCOUNTER 2021-10-17 08:05 | Inpatient (IN) | payer BC, MEDICAID, SELFPAY ==
[2021-10-17] VITALS (16 sets, daily range): BP systolic 137–161; BP diastolic 82–105; PULSE 69–95; RESP 16–28; TEMP 36.3–36.8; O2SAT 93–100; BMI 40.3
--- NOTE | 2021-10-17 08:07 | ECG_ITS ---
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 Measurements Intervals Corinne Rate: 93 P: 66 NJ: 132 QRS: 55 QRSD: 95 T: 11 QT: 396 QTc: 493 Interpretive Statements SINUS RHYTHM No previous ECG available for comparison Electronically Signed On 10-17-2021 12:59:21 CDT by Aldo Allison M.D. [email or web address]
--- NOTE | 2021-10-17 08:08 | W.ED.OVERDOS ---
HPI - Overdose General: Chief Complaint: Overdose Stated Complaint: OVERDOSE Time Seen by Provider: 10/17/21 08:05 Source: patient and EMS Mode of arrival: EMS Limitations: no limitations History of Present Illness: 20-year-old female presents here with an overdose she states she has had increasing depression and has had a history of an overdose in the past. Patient states that 1 hour ago she ingested multiple pills. She had taken Tylenol phentermine Lexapro and sertraline. EMS states when they arrived there were pills on the floor and she had vomited as well they gave her activated charcoal. She states she was trying to kill herself denies any worsening improving factors. Review of Systems Const: Denies: fever(s), chills, body aches or change in appetite Eyes: Denies: blurry vision or eye discomfort ENMT: Denies: throat pain or dental pain Card: Denies: chest pain Resp: Denies: dyspnea GI: Denies: abdominal pain, nausea, vomiting or diarrhea : Denies: dysuria Musc: Denies: neck pain or back pain Skin/Breast: Denies: rash Neuro: Denies: headache(s) Psych: Reports: suicidal ideation Devonte/Lymph: Denies: easy bruising All/Imm: Denies: urticaria PFSH ED PFSH: Medical History No pertinent past medical history Surgical History History of cholecystectomy Family History Father Hypertension Mother Hypertension Social History Smoking and tobacco status: never smoked Female Reproductive History: Date of last menstrual period: 06/02/21 Physical Exam Const: COMMON NORMALS: patient oriented x3 GENERAL APPEARANCE: ill appearing HENMT: COMMON NORMALS: normocephalic and atraumatic HEAD & SCALP: normocephalic and atraumatic Eye: COMMON NORMALS: Equal, round and reactive pupils present and EOMs intact bilaterally PUPIL: Yes Equal, round and reactive pupils present Neck/C-Spine: COMMON NORMALS: full ROM and supple Chest: COMMONS NORMALS: normal inspection of the chest and normal palpation of entire chest wall Resp: COMMON NORMALS: normal respiratory effort, No retractions, No use of accessory muscles and clear to auscultation bilaterally AUSCULTATION: clear to auscultation bilaterally Cardio: COMMON NORMALS: regular rate, regular rhythm and No murmurs present (Cardio) RATE: regular rate RHYTHM: regular rhythm GI: COMMON NORMALS: Normal to inspection, nondistended, normoactive bowel sounds present, Soft to palpation, non-tender and no masses PALPATION: Yes Soft to palpation Extremity: COMMON NORMALS: normal to inspection and full ROM Neuro: COMMON NORMALS: patient oriented x3, moves all extremities and no focal motor deficits Psych: COMMON NORMALS: mental status grossly normal, Normal thought process present and cooperative THOUGHT PROCESS: Normal thought process present THOUGHT CONTENT: Yes Suicidality present Skin: COMMON NORMALS: no rashes or lesions noted and no wounds GENERAL SKIN EXAM: no rashes or lesions noted Course Vital Signs: Vital signs: Vital Signs Temperature 97.3 F L 10/17/21 08:38 Pulse Rate 82 10/17/21 11:06 Respiratory Rate 26 H 10/17/21 10:47 Blood Pressure 140/92 10/17/21 11:06 Pulse Oximetry 100 10/17/21 11:06 MDM - Overdose Medical Decision Making Patient presents here with suicide attempt by overdose she has been well-appearing here observed for 4 hours no signs of symptoms of overdose her 4-hour Tylenol level showed no signs of overdose we will admit her to the psychiatric [facility]. Lab Data : 10/17/21 08:15 10/17/21 08:15 Laboratory Results WBC 10.3 10^3/uL (4.5-13.0) 10/17/21 08:15 RBC 5.10 10^6/uL (4.1-5.3) 10/17/21 08:15 Hgb 14.2 g/dL (11.5-15.3) 10/17/21 08:15 Hct 43.2 % (37.0-47.0) 10/17/21 08:15 MCV 84.7 fl (81-99) 10/17/21 08:15 MCH 27.8 pg (28.0-34.0) L 10/17/21 08:15 MCHC 32.9 g/dL (30.0-36.0) 10/17/21 08:15 RDW 13.7 % (12.1-15.1) 10/17/21 08:15 Plt Count 341 10^3/cmm (130-400) 10/17/21 08:15 MPV 10.4 fL (7.4-10.4) 10/17/21 08:15 Neut % (Auto) 67.1 % 10/17/21 08:15 Lymph % (Auto) 24.8 % 10/17/21 08:15 Pine % (Auto) 6.8 % 10/17/21 08:15 Eos % (Auto) 0.7 % 10/17/21 08:15 Baso % (Auto) 0.3 % 10/17/21 08:15 Neut # (Auto) 6.92 10^3/uL (1.8-8.0) 10/17/21 08:15 Lymph # (Auto) 2.6 10^3/uL (1.5-6.5) 10/17/21 08:15 Pine # (Auto) 0.7 10^3/uL (0.2-0.9) 10/17/21 08:15 Eos # (Auto) 0.1 10^3/uL (0.0-0.8) 10/17/21 08:15 Baso # (Auto) 0.0 10^3/uL (0.0-0.1) 10/17/21 08:15 Nucleated RBC % (auto) 0 % 10/17/21 08:15 Nucleated RBCs # 0.0 /100WBC 10/17/21 08:15 Sodium 138 mmol/L (136-145) 10/17/21 08:15 Potassium 3.3 mmol/L (3.5-5.1) L 10/17/21 08:15 Chloride 102 mmol/L (98-107) 10/17/21 08:15 Carbon Dioxide 20 mmol/L (22-29) L 10/17/21 08:15 Anion Gap 19.3 (5-19) H 10/17/21 08:15 BUN 7 mg/dL (6-20) 10/17/21 08:15 Creatinine 0.8 mg/dL (0.5-0.9) 10/17/21 08:15 GFR Calculation 92.4 mL/min (90-130) 10/17/21 08:15 Glucose 106 mg/dL (65-115) 10/17/21 08:15 Calculated Osmolality 284 mOsm/kg (285-295) L 10/17/21 08:15 Calcium 8.9 mg/dL (8.5-10.5) 10/17/21 08:15 Total Bilirubin 0.4 mg/dL (0.15-1.2) 10/17/21 08:15 AST 16 U/L (0-32) 10/17/21 08:15 ALT 23 U/L (0-33) 10/17/21 08:15 Alkaline Phosphatase 95 IU/L (35-105) 10/17/21 08:15 Total Protein 7.8 g/dL (6.6-8.7) 10/17/21 08:15 Albumin 4.5 g/dL (3.5-5.2) 10/17/21 08:15 Globulin 3.3 g/dL (1.3-4.6) 10/17/21 08:15 HCG, Qual Negative (Negative) 10/17/21 09:58 Salicylates < 0.3 mg/dL (3-10) L 10/17/21 08:15 Urine Opiates Screen Negative ng/mL (Negative) 10/17/21 09:58 Acetaminophen 13.8 ug/mL (10-30) 10/17/21 11:12 Ur Barbiturates Screen Negative ng/mL (Negative) 10/17/21 09:58 Ur Phencyclidine Scrn Negative ng/mL (Negative) 10/17/21 09:58 Ur Amphetamines Screen Positive ng/mL (Negative) H 10/17/21 09:58 U Benzodiazepines Scrn Negative ng/mL (Negative) 10/17/21 09:58 Urine Cocaine Screen Negative ng/mL (Negative) 10/17/21 09:58 U Marijuana (THC) Screen Positive ng/mL (Negative) H 10/17/21 09:58 Ethyl Alcohol < 10 mg/dL (0-10) 10/17/21 08:15 EKG Data EKG 1: I personally reviewed and interpreted this EKG as follows: EKG interpretation date: 10/17/21 EKG interpretation time: 08:13 Interpretation: nsr hr [address] or t wave abnormalities qrs 95 qtc 446 Critical Care Time Critical Care Time: Critical Care Time: Yes Total Critical Care Time: 40 Attestation: The high probability of a clinically significant, sudden or life threatening deterioration of the patient's OD system(s) required my full and direct attention, intervention and personal management. The critical care time is as shown. This time is in addition to time spent performing any reported procedures but includes the following: [x] Data and vital sign review and interpretation [x] Patient assessment, examination and intervention [x] Documentation [x] Medication orders and management Discharge Plan Discharge Patient Disposition: Admitted As Inpatient Clinical Impression: Suicide attempt by multiple drug overdose Condition: Stable Coding Level of Care Code ED Certified Phlebotomy Technician for Amador Fwd Exam Comprehensive
--- NOTE | 2021-10-17 08:10 | PC.NURSE ---
Patient comes here today via EMS for overdose. Patient was found in a tub with warm water by police and ems. She texted her ex telling him to take care of their child and raise him right. See attached texts in paper chart. Patient calm and cooperative. Patient appears to be drowsy. Patient alert and oriented. patient states she wants to be back with her ex and that is why she did what she did today. Patient calm and cooperative. PD states that she took her antidepressants, her mothers, and some of her ex's medications, along with Tylenol. Patient has no known drug allergies. Patient states she is on her period. Patient has history of depression and a suicide attempt. Patient was given activated charcoal by ems.
[2021-10-17 08:53] LABS: Basophils % 0.3 %; Eosinophils # 0.1 10^3/uL (0.0-0.8); Eosinophils % 0.7 %; Hematocrit 43.2 % (37.0-47.0); Hemoglobin 14.2 g/dL (11.5-15.3); Lymphocytes # 2.6 10^3/uL (1.5-6.5); Lymphocytes % 24.8 %; Mean Corpuscular HGB Conc 32.9 g/dL (30.0-36.0); Mean Corpuscular Hemoglobin 27.8 pg (28.0-34.0); Mean Corpuscular Volume 84.7 fl (81-99); Mean Platelet Volume 10.4 fL (7.4-10.4); Monocytes # 0.7 10^3/uL (0.2-0.9); Monocytes % 6.8 %; Neutrophils # 6.92 10^3/uL (1.8-8.0); Neutrophils % 67.1 %; Nucleated Red Blood Cells % 0 %; Platelet Count 341 10^3/cmm (130-400); Red Cell Distribution Width 13.7 % (12.1-15.1); White Blood Count 10.3 10^3/uL (4.5-13.0)
[2021-10-17 09:06] LABS: Acetaminophen 34.3 ug/mL (10-30); Alanine Aminotransferase 23 U/L (0-33); Albumin Level 4.5 g/dL (3.5-5.2); Alkaline Phosphatase 95 IU/L (35-105); Anion Gap 19.3 (5-19); Aspartate Amino Transferase 16 U/L (0-32); Blood Urea Nitrogen 7 mg/dL (6-20); Calcium 8.9 mg/dL (8.5-10.5); Carbon Dioxide 20 mmol/L (22-29); Chloride 102 mmol/L (98-107); Globulin 3.3 g/dL (1.3-4.6); Glomerular Filtration Rate 92.4 mL/min (90-130); Glucose 106 mg/dL (65-115); Osmolality Calculated 284 mOsm/kg (285-295); Potassium 3.3 mmol/L (3.5-5.1); Sodium 138 mmol/L (136-145); Total Bilirubin 0.4 mg/dL (0.15-1.2); Total Protein 7.8 g/dL (6.6-8.7)
[2021-10-17 09:10] LABS: Alcohol Level < 10 mg/dL (0-10); Salicylate < 0.3 mg/dL (3-10)
[2021-10-17 10:15] LABS: HCG Qualitative Urine. Negative (Negative)
[2021-10-17 10:22] LABS: Amphetamines Screen Urine Positive (Negative); Barbiturates Screen Urine Negative (Negative); Benzodiazepines Screen Urine Negative (Negative); Cocaine Screen Urine Negative (Negative); Opiate Screen Urine Negative (Negative); PCP Screen Urine Negative (Negative); THC Screen Urine Positive (Negative)
[2021-10-17 11:38] LABS: Acetaminophen 13.8 ug/mL (10-30)
[2021-10-17] MEDS: nicotine 2 mg Gum BUCCAL ×2 (13:14→20:40)
[2021-10-17] MEDS: ondansetron 4 MG Tablet PO (20:46)
--- NOTE | 2021-10-17 21:08 | PC.NURSE ---
Pt requested medicine for upset stomach, zofran 4mg po given.
[2021-10-18 06:00] VITALS: BP 121/77; PULSE 68; RESP 16; TEMP 36.5; O2SAT 97
[2021-10-18] MEDS: sertraline 50 mg Tablet PO (08:54)
--- NOTE | 2021-10-18 09:38 | W.PM.NPUH&PS ---
Providers/Chief Complaint Admitting Physician: Pete Myles MD Primary Care Provider: ALBER Hogan Chief Complaint: OVERDOSE HPI NPU History of Present Illness Meka Nichols is a 20 year old female who presented to the emergency department with the following report: Chief Complaint: Overdose Stated Complaint: OVERDOSE Time Seen by Provider: 10/17/21 08:05 Source: patient and EMS Mode of arrival: EMS Limitations: no limitations History of Present Illness: 20-year-old female presents here with an overdose she states she has had increasing depression and has had a history of an overdose in the past. Patient states that 1 hour ago she ingested multiple pills. She had taken Tylenol phentermine Lexapro and sertraline. EMS states when they arrived there were pills on the floor and she had vomited as well they gave her activated charcoal. She states she was trying to kill herself denies any worsening improving factors. She was admitted to the neuropsychiatric unit for definitive treatment of those issues. She presents today reporting that she is on Zoloft weekly 50 mg p.o. every morning and has been on that for about a month and that she is here because to try to kill her self recently broke up with her boyfriend. Visit for psychiatric inpatient stay she had outpatient services at [facility] but more or less stopped all services for few years and only recently started getting her Zoloft again from her PCP. She smokes and vapes, she has alcohol every now and then, she has marijuana once in a while but had not had it for a while until just recently. She denies cocaine methamphetamine opiates or any other illicit drugs she never had a rehab visit never had a DUI or any possession charges. We reviewed her 08/27/2015 note and she endorsed that it did represent an accurate history for her at that point. She reports that since then she has had this suicide attempt and one other. She reports she has not had self-injurious behavior for few years. She reports that she had had depression in the past and was doing well and with her boyfriend when they broke up things got bad. She reports that he had a fairly chaotic life reporting that she lives with her mom and then they moved in with with his mom and she went to her dad's and then she went to her mom's. 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 This was back in March she still working at [employer] and things are going really well she reports that he lied to her about something was very important and they broke up in June but continue to live together which may for a very chaotic situation. She is currently trying to deal with all the drama and reports that her child will be 2 in November. We discussed the risk-benefit and alternatives of increasing the Zoloft to 100 mg p.o. every morning and possibly adding Lamictal tomorrow after she considers it and she understood agreed proceed as is documented in this note. And that 08/27/2015 note is included below for context. Per her 08/27/2015 [facility] outpatient psychiatric evaluation: [facility] Psychiatric Evaluation Time in: 1545 Time out: 1625 Chief Complaint: Depression History of present illness: Meka is a 14-year-old white female who presents with her mother, Jayde, for the psychiatric evaluation of depression.? Meka tells me that she started to become sad about 4 years ago after the of her grandmother.? This is correlated in time with what her mother became severely depressed herself and went on Zoloft.? Things were fairly stagnant until about 2 years ago when she became severely melancholic.? Since that time she has had difficulties with poor focus, worsening grades, low energy, difficulty sleeping, anhedonia, lack of motivation, low self-esteem, and a depressed mood.? She frequently cries.? She has passive thoughts of from time to time, but she denies any desire or plan to ever in her life and tells me that she would never do that because I wouldn't want to leave my mom .? She has never been manic or hypomanic and she is having no mixed symptomatology right now. ? She tells me that she is anxious, but I'm unclear if she actually has an anxiety disorder.? She tends to worry about other people and she feels guilty about things that they're going through.? I think this is actually a symptom of her depression. ? I di her best friend is her 16-year-old brother and from what she and her mother described, it sounds like he is quite depressed himself.? I'm concerned that they may both be leading a depressogenic lifestyle.? I did notice that Meka is overweight and has a thick neck.? She does have occasional headaches, she falls asleep in class, and she is quite tired.? She denies any snoring or waking up gasping for air.? Her mother has private insurance and has not met her deductible yet so we are not going to order a sleep study given the fact that she doesn't snore or gasp for air.? However, if she doesn't respond to antidepressants that her mother and I have agreed to do a sleep study at that time. Past Psychiatric History: No hospitalizations or suicide attempts.? She does have long history of self-mutilation this started about 2 years ago, she has not cut herself in the last couple of months.? Family Psychiatric History: Her grandmother suffered from depression.? Her mother is also suffered from depression and has been on Zoloft for the last few years and states without Zoloft I would probably be , it's a miracle medicine .? There is no family history of suicide. Past Medical History: No ongoing medical problems. Substance Use History: She has experimented with alcohol, but she has never had a substance use disorders she denies the use of any other illicits. Social History: Her mother denies being exposed to any drugs or toxins while .? There were no problems with the or period.? She met her major development milestones on time.? She has never been exposed to physical or sexual abuse.? Her parents when she was young and she lives with her mother and her 16-year-old brother here in [facility] along with her pet dog.? Her brother is going through depression himself.? She is in the seventh grade and she gets fairly average grades and she does not have an IEP.? She is involved in many extracurricular activities including [place], choir, band, and sports.? The family does not attend oriental orthodox.? She has never had legal problems.? There are no firearms at home. Meds NPU Home Medications Medication Instructions Recorded Confirmed Last Taken Type acetaminophen 500 mg tablet 1,000 mg PO Q4H PRN 04/01/21 10/17/21 10/17/21 History etonogestrel 0.12 mg-ethinyl 1 vag ring VAGINAL . DIRECTED 10/17/21 10/17/2110/17/22 History estradiol 0.015 mg/24 hr vaginal ring (TomyuRyng) phentermine 37.5 mg tablet 37.5 mg PO DAILY 10/17/21 10/17/21 10/17/21 History sertraline 50 mg tablet 50 mg PO DAILY 10/17/21 10/17/21 10/17/21 History Allergies Allergy/AdvReac Type Severity Reaction Status Date / Time No Known Allergies Allergy Verified 04/01/21 11:58 PFSH NPU PFSH: Medical History No pertinent past medical history Surgical History History of cholecystectomy Family History Father Hypertension Mother Hypertension Social History Smoking and tobacco status: never smoked Mental Status Exam MSE Comments: This is an obese white female in hospital scrubs with adequate grooming and eye contact. No abnormal movements. Cooperative with exam in no acute distress. Speech was normal rate and volume. Mood described as a little anxious, affect congruent. Thought process organized, thought content: patient denies suicidal or homicidal ideation, there were no delusions reported or noted, she denied any auditory or visual hallucinations. Attention and concentration were intact and memory appeared reliable but none were formally tested. She?s alert and oriented times three. Insight and judgment appeared fair and impulse control appeared fair Vitals/I&O/Wt Last Vital Signs Temp 97.7 F 10/18/21 06:00 Pulse 68 10/18/21 06:00 Resp 16 10/18/21 06:00 BP 121/77 10/18/21 06:00 Pulse Ox 97 10/18/21 06:00 Weight last 48 hrs Weight 116.12 kg Weight 113.398 kg Data NPU : 10/17/21 08:15 10/17/21 08:15 A&P Assessment and plan (1) Suicide attempt by multiple drug overdose: Status: Acute (2) Major depressive disorder, recurrent: Status: Acute (3) Cluster B personality disorder in adult: Status: Acute Plan This is a 20-year-old white female with a long history of depression and likely cluster B pathology who presented after a suicide attempt as she struggles in a chaotic situation living with her boyfriend with whom she is broken up. 1. Continue current medication. Increase Zoloft to 100 mg p.o. every morning and will consider titration of Lamictal tomorrow. 2. Continue every 15 minute checks for safety. 3. Encourage individual, group and milieu therapies. 4. Encourage sober living treatment after discharge at the highest level of care to which he is willing to commit. Involuntary Hold Information 96 Hour Hold: 96 Hour Involuntary Admission: Yes Attestations NPU Medical Necessity Statement*: Inpatient hospitalization is medically necessary and the clinically appropriate intervention at this time. We will monitor medication to make changes as indicated. Patient will be in the hospital for over two midnights. Likely length of stay 3 to 5 days. Coding Level of Care Code Acute [employer] for [facility] Diagnoses Suicide attempt by multiple drug overdose T50.912A Major depressive disorder, recurrent F33.9 Cluster B personality disorder in adult F60.9
[2021-10-18] MEDS: nicotine 2 mg Gum BUCCAL (10:10)
[2021-10-18 14:00] VITALS: BP 144/97; PULSE 74; RESP 17; TEMP 36.8; O2SAT 97
[2021-10-18 20:20] VITALS: BP 147/91; PULSE 86; RESP 18; TEMP 36.6; O2SAT 95
[2021-10-18] MEDS: hyDROXYzine 25 mg Capsule 50 MG PO (21:03)
[2021-10-18 21:38] VITALS: BP 147/91; PULSE 86; RESP 18; TEMP 36.6; O2SAT 95
[2021-10-19 06:00] VITALS: BP 128/78; PULSE 76; RESP 14; TEMP 36.6; O2SAT 97
[2021-10-19] MEDS: sertraline 50 mg Tablet PO ×2 (08:18→16:50)
--- NOTE | 2021-10-19 08:48 | PC.NURSE ---
IN ROOM STATES SHE SLEPT WELL. DENIES PAIN. DENIES SI/HI AND AVH AT THIS TIME. REPORTS I FEEL BETTER AND I HAVE A 2 YEAR OLD AT HOME SO I DON'T WANT TO HURT MYSELF. SUPPORT VOICED.
[2021-10-19 14:00] VITALS: BP 152/81; PULSE 56; RESP 16; TEMP 36.6; O2SAT 98
[2021-10-19] MEDS: nicotine 2 mg Gum BUCCAL (14:03)
--- NOTE | 2021-10-19 14:17 | P.NPUPN_ITS ---
Subjective NPU Subjective: Patient presents today reporting that things are going fairly well. She reports that she has been talking to her ex and they have been contemplating working things out together. She reports that she wants to focus on her son and herself and that she is very interested in meeting did not miss her ex being more supportive and may be more compassionate. She reports that she feels optimistic that maybe things to get better. She is hoping to go home soon to be able to try. She denied any problems with the Zoloft. We discussed working with the treatment team towards the possibility of outpatient services and follow-up. We discussed likely discharge in the next 48 hours Mental Status Exam MSE Comments: This is an obese white female in hospital scrubs with adequate grooming and eye contact. No abnormal movements. Cooperative with exam in no acute distress. Speech was normal rate and volume. Mood described as a little better, affect congruent. Thought process organized, thought content: patient denies suicidal or homicidal ideation, there were no delusions reported or noted, she denied any auditory or visual hallucinations. Attention and concentration were intact and memory appeared reliable but none were formally tested. She?s alert and oriented times three. Insight and judgment appeared fair and impulse control appeared fair Vitals/I&O/Wt Last Vital Signs Temp 97.8 F 10/19/21 14:00 Pulse 56 L 10/19/21 14:00 Resp 16 10/19/21 14:00 BP 152/81 10/19/21 14:00 Pulse Ox 98 10/19/21 14:00 Weight last 48 hrs Weight 116.12 kg Weight 116.12 kg Data NPU : 10/17/21 08:15 10/17/21 08:15 A&P Assessment and plan (1) Cluster B personality disorder in adult: Status: Acute (2) Major depressive disorder, recurrent: Status: Acute (3) Suicide attempt by multiple drug overdose: Status: Acute Plan This is a 20-year-old white female with a long history of depression and likely cluster B pathology who presented after a suicide attempt as she struggles in a chaotic situation living with her boyfriend with whom she is broken up. 1.? Continue current medication.? Increased Zoloft to 100 mg p.o. every morning and will consider titration of Lamictal tomorrow. 2.? Continue every 15 minute checks for safety. 3.? Encourage individual, group and milieu therapies. 4.? Encourage sober living treatment after discharge at the highest level of care to which he is willing to commit. Involuntary Hold Information 96 Hour Hold: 96 Hour Involuntary Admission: Yes Attestations NPU Medical Necessity Statement*: Inpatient hospitalization is medically necessary and the clinically appropriate intervention at this time. We will monitor medication to make changes as indicated. Likely length of stay 1-3 days. Coding Level of Care Code Acute Process [employer] Technician for [facility] Fwd Diagnoses Cluster B personality disorder in adult F60.9 Major depressive disorder, recurrent F33.9 Suicide attempt by multiple drug overdose T50.576R
[2021-10-19] MEDS: hyDROXYzine 25 mg Capsule 50 MG PO (20:47)
[2021-10-19 21:18] VITALS: BP 135/94; PULSE 93; RESP 17; TEMP 36.6; O2SAT 99
[2021-10-20 06:00] VITALS: BP 122/71; PULSE 70; RESP 18; TEMP 36.7; O2SAT 96
[2021-10-20] MEDS: sertraline 100 mg Tablet PO (08:20)
[2021-10-20] MEDS: nicotine 2 mg Gum BUCCAL ×2 (08:47→16:13)
[2021-10-20 14:00] VITALS: BP 134/87; PULSE 79; RESP 18; TEMP 36.7; O2SAT 96
--- NOTE | 2021-10-20 18:07 | W.PM.NPUDCS ---
Diagnoses at Discharge Discharge Diagnosis (1) Cluster B personality disorder in adult: Status: Acute (2) Major depressive disorder, recurrent: Status: Acute (3) Suicide attempt by multiple drug overdose: Status: Acute Reason for Visit Reason for Visit: OVERDOSE Brief History: History of Present Illness Meka Nichols is a 20 year old female who presented to the emergency department with the following report: Chief Complaint: Overdose Stated Complaint: OVERDOSE Time Seen by Provider: 10/17/21 08:05 Source: patient and EMS Mode of arrival: EMS Limitations: no limitations History of Present Illness:?? 20-year-old female presents here with an overdose she states she has had increasing depression and has had a history of an overdose in the past.? Patient states that 1 hour ago she ingested multiple pills.? She had taken Tylenol phentermine Lexapro and sertraline.? EMS states when they arrived there were pills on the floor and she had vomited as well they gave her activated charcoal.? She states she was trying to kill herself denies any worsening improving factors. She was admitted to the neuropsychiatric unit for definitive treatment of those issues.? She presents today reporting that she is on Zoloft weekly 50 mg p.o. every morning and has been on that for about a month and that she is here because to try to kill her self recently broke up with her boyfriend.? Visit for psychiatric inpatient stay she had outpatient services at [facility] but more or less stopped all services for few years and only recently started getting her Zoloft again from her PCP.? She smokes and vapes, she has alcohol every now and then, she has marijuana once in a while but had not had it for a while until just recently.? She denies cocaine methamphetamine opiates or any other illicit drugs she never had a rehab visit never had a DUI or any possession charges.? We reviewed her 08/27/2015 note and she endorsed that it did represent an accurate history for her at that point.? She reports that since then she has had this suicide attempt and one other.? She reports she has not had self-injurious behavior for few years.? She reports that she had had depression in the past and was doing well and with her boyfriend when they broke up things got bad.? She reports that he had a fairly chaotic life reporting that she lives with her mom and then they moved in with with his mom and she went to her dad's and then she went to her mom's.? 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 This was back in March she still working at [employer] and things are going really well she reports that he lied to her about something was very important and they broke up in June but continue to live together which may for a very chaotic situation.? She is currently trying to deal with all the drama and reports that her child will be 2 in November.? We discussed the risk-benefit and alternatives of increasing the Zoloft to 100 mg p.o. every morning and possibly adding Lamictal tomorrow after she considers it and she understood agreed proceed as is documented in this note.? And that 08/27/2015 note is included below for context. Per her 08/27/2015 [facility] outpatient psychiatric evaluation: [facility] Psychiatric Evaluation Time in: 1545 Time out: 1625 Chief Complaint: Depression History of present illness: Meka is a 14-year-old white female who presents with her mother, Jayde, for the psychiatric evaluation of depression.? Meak tells me that she started to become sad about 4 years ago after the of her grandmother.? This is correlated in time with what her mother became severely depressed herself and went on Zoloft.? Things were fairly stagnant until about 2 years ago when she became severely melancholic.? Since that time she has had difficulties with poor focus, worsening grades, low energy, difficulty sleeping, anhedonia, lack of motivation, low self-esteem, and a depressed mood.? She frequently cries.? She has passive thoughts of from time to time, but she denies any desire or plan to ever in her life and tells me that she would never do that because I wouldn't want to leave my mom .? She has never been manic or hypomanic and she is having no mixed symptomatology right now. ? She tells me that she is anxious, but I'm unclear if she actually has an anxiety disorder.? She tends to worry about other people and she feels guilty about things that they're going through.? I think this is actually a symptom of her depression. ? I di her best friend is her 16-year-old brother and from what she and her mother described, it sounds like he is quite depressed himself.? I'm concerned that they may both be leading a depressogenic lifestyle.? I did notice that Meka is overweight and has a thick neck.? She does have occasional headaches, she falls asleep in class, and she is quite tired.? She denies any snoring or waking up gasping for air.? Her mother has private insurance and has not met her deductible yet so we are not going to order a sleep study given the fact that she doesn't snore or gasp for air.? However, if she doesn't respond to antidepressants that her mother and I have agreed to do a sleep study at that time. Past Psychiatric History: No hospitalizations or suicide attempts.? She does have long history of self-mutilation this started about 2 years ago, she has not cut herself in the last couple of months.? Family Psychiatric History: Her grandmother suffered from depression.? Her mother is also suffered from depression and has been on Zoloft for the last few years and states without Zoloft I would probably be , it's a miracle medicine .? There is no family history of suicide. Past Medical History: No ongoing medical problems. Substance Use History: She has experimented with alcohol, but she has never had a substance use disorders she denies the use of any other illicits. Social History: Her mother denies being exposed to any drugs or toxins while .? There were no problems with the or period.? She met her major development milestones on time.? She has never been exposed to physical or sexual abuse.? Her parents when she was young and she lives with her mother and her 16-year-old brother here in [facility] along with her pet dog.? Her brother is going through depression himself.? She is in the seventh grade and she gets fairly average grades and she does not have an IEP.? She is involved in many extracurricular activities including seated [place], choir, band, and sports.? The family does not attend [employer]uther[employer].? She has never had legal problems.? There are no firearms at home. Hospital Course Hospital Course She quickly acclimated to the individual, group and and milieu therapies provided. She was agreeable to increasing her Zoloft from 50 mg to 100 mg p.o. daily and had a positive response. She worked with the treatment team to get reconnected to [facility] which she has been connected with them in the past. Additionally she began working with her ask to possibly reconcile or least improved upon their communication. She was very happy with the strides there was a during the hospitalization and was able to contract for safety outside the hospital prior to discharge. She had significant improvement over presentation. During the hospitalization, patient had routine laboratory studies which were within normal limits except for few outliers. Additionally there was a general medical evaluation which was also within normal limits and revealed no new acute processes. Discharge Summary: At the time of discharge, she denied psychosis or lethality. Mood and anxiety were well managed. Patient endorsed a plan to avoid all drugs of abuse and follow-up with the aftercare recommendations of the treatment team. Patient was evaluated and deemed to be absent credible lethality, and had achieved the maximum benefit from an inpatient hospitalization, so was discharged. Involuntary Hold Information 96 Hour Hold: 96 Hour Involuntary Admission: Yes Mental Status Exam MSE Comments: This is an obese white female in hospital scrubs with adequate grooming and eye contact. No abnormal movements. Cooperative with exam in no acute distress. Speech was normal rate and volume. Mood described as pretty good, affect congruent. Thought process organized, thought content: patient denies suicidal or homicidal ideation, there were no delusions reported or noted, she denied any auditory or visual hallucinations. Attention and concentration were intact and memory appeared reliable but none were formally tested. She?s alert and oriented times three. Insight and judgment appeared fair and impulse control appeared fair. Discharge Data Studies Completed and Pending: Laboratory Results WBC 10.3 10^3/uL (4.5 -13.0) 10/17/21 08:15 RBC 5.10 10^6/uL (4.1 -5.3) 10/17/21 08:15 Hgb 14.2 g/dL (11.5-1 5.3) 10/17/21 08:15 Hct 43.2 % (37.0-47.0 ) 10/17/21 08:15 MCV 84.7 fl (81-99) 10/17/21 08:15 MCH 27.8 pg (28.0-34. 0) L 10/17/21 08:15 MCHC 32.9 g/dL (30.0-3 6.0) 10/17/21 08:15 RDW 13.7 % (12.1-15.1 ) 10/17/21 08:15 Plt Count 341 10^3/cmm (130 -400) 10/17/21 08:15 MPV 10.4 fL (7.4-10.4 ) 10/17/21 08:15 Neut % (Auto) 67.1 % 10/17/21 08:15 Lymph % (Auto) 24.8 % 10/17/21 08:15 [place]erry % (Auto) 6.8 % 10/17/21 08:15 Eos % (Auto) 0.7 % 10/17/21 08:15 Baso % (Auto) 0.3 % 10/17/21 08:15 Neut # (Auto) 6.92 10^3/uL (1.8 -8.0) 10/17/21 08:15 Lymph # (Auto) 2.6 10^3/uL (1.5- 6.5) 10/17/21 08:15 [place] # (Auto) 0.7 10^3/uL (0.2- 0.9) 10/17/21 08:15 Eos # (Auto) 0.1 10^3/uL (0.0- 0.8) 10/17/21 08:15 Baso # (Auto) 0.0 10^3/uL (0.0- 0.1) 10/17/21 08:15 Nucleated RBC % (a uto) 0 % 10/17/21 08:15 Nucleated RBCs # 0.0 /100WBC 10/17/21 08:15 Sodium 138 mmol/L (136-1 45) 10/17/21 08:15 Potassium 3.3 mmol/L (3.5-5 .1) L 10/17/21 08:15 Chloride 102 mmol/L (98-10 7) 10/17/21 08:15 Carbon Dioxide 20 mmol/L (22-29) L 10/17/21 08:15 Anion Gap 19.3 (5-19) H 10/17/21 08:15 BUN 7 mg/dL (6-20) 10/17/21 08:15 Creatinine 0.8 mg/dL (0.5-0. 9) 10/17/21 08:15 GFR Calculation 92.4 mL/min (90-1 30) 10/17/21 08:15 Glucose 106 mg/dL (65-115 ) 10/17/21 08:15 Calculated Osmolal ity 284 mOsm/kg (285- 295) L 10/17/21 08:15 Calcium 8.9 mg/dL (8.5-10 .5) 10/17/21 08:15 Total Bilirubin 0.4 mg/dL (0.15-1 .2) 10/17/21 08:15 AST 16 U/L (0-32) 10/17/21 08:15 ALT 23 U/L (0-33) 10/17/21 08:15 Alkaline Phosphata se 95 IU/L (35-105) 10/17/21 08:15 Total Protein 7.8 g/dL (6.6-8.7 ) 10/17/21 08:15 Albumin 4.5 g/dL (3.5-5.2 ) 10/17/21 08:15 Globulin 3.3 g/dL (1.3-4.6 ) 10/17/21 08:15 HCG, Qual Negative (Negati ve) 10/17/21 09:58 Salicylates < 0.3 mg/dL (3-10 ) L 10/17/21 08:15 Urine Opiates Scre en Negative ng/mL (N egative) 10/17/21 09:58 Acetaminophen 13.8 ug/mL (10-30 ) 10/17/21 11:12 Ur Barbiturates Sc reen Negative ng/mL (N egative) 10/17/21 09:58 Ur Phencyclidine S crn Negative ng/mL (N egative) 10/17/21 09:58 Ur Amphetamines Sc reen Positive ng/mL (N egative) H 10/17/21 09:58 U Benzodiazepines Scrn Negative ng/mL (N egative) 10/17/21 09:58 Urine Cocaine Scre en Negative ng/mL (N egative) 10/17/21 09:58 U Marijuana (THC) Screen Positive ng/mL (N egative) H 10/17/21 09:58 Ethyl Alcohol < 10 mg/dL (0-10) 10/17/21 08:15 Vitals: Last Vital Signs Temp 98.0 F 10/20/21 14:00 Pulse 79 10/20/21 14:00 Resp 18 10/20/21 14:00 BP 134/87 10/20/21 14:00 Pulse Ox 96 10/20/21 14:00 Discharge Plan Discharge Patient Disposition: Home Condition: Stable Prescriptions: New sertraline 100 mg Tablet 100 mg PO DAILY 30 Days Qty: 30 1RF Continued acetaminophen 500 mg Tablet 1,000 mg PO Q4H PRN (Reason: Pain) 0RF etonogestrel-ethinyl estradiol [EluRyng] 0.12-0.015 mg/24 hr ring 1 vag ring VAGINAL . DIRECTED 0RF Discontinued phentermine 37.5 mg tablet 37.5 mg PO DAILY 0RF sertraline 50 mg tablet 50 mg PO DAILY 0RF Discharge Orders: Discharge Order (Routine); Ordered 10/20/21 Ordered By: Pete Myles Referrals: [facility] [Outside] (Staff will call with initial appointment. ) Yudelka Arroyo FNP [Primary Care Provider] - 10/27/21 10:00 am (Follow up) Discharge Diet: Regular Discharge Activity: Resume usual activity Patient Instructions: Sertraline (By mouth) (Zoloft), Mood Disorders (DC), Depression (DC), Methamphetamine Use Disorder (IP), Suicide Prevention (DC), Opioid Safety Discharge Attestations NPU Time Spent in Discharge Care*: less than 30 min Specific Discharge Activities: Specific discharge activities: educating patient, discussing with caseworker intake/social workers/dc planners, documenting/other paperwork and evaluating patient/reviewing data Coding Level of Care Code Acute Chg FW DC note Diagnoses Cluster B personality disorder in adult F60.9 Major depressive disorder, recurrent F33.9 Suicide attempt by multiple drug overdose T50.918U
[2021-10-20 18:16] VITALS: BP 134/87; PULSE 79; RESP 18; TEMP 36.7; O2SAT 96
== END 2021-10-20 19:57 | disposition home or self-care (01) | DRG 918 ==
LOC: ER 11:46 → NP 10-18 06:47
PROVIDERS: Admitting Provider Psychiatry & Neurology Psychiatry; Emergency Provider Emergency Medicine; PCP Registered Nurse; Visit Provider Psychiatry & Neurology Psychiatry
DX: T39.1X2A Poisoning by 4-Aminophenol derivatives, intentional self-harm, initial encounter (principal); F33.9 Major depressive disorder, recurrent, unspecified; R45.851 Suicidal ideations; Z68.42 Body mass index [BMI] 45.0-49.9, adult; T43.222A Poisoning by selective serotonin reuptake inhibitors, intentional self-harm, initial encounter; F17.290 Nicotine dependence, other tobacco product, uncomplicated; E66.9 Obesity, unspecified; F60.9 Personality disorder, unspecified
CPT/HCPCS: 36415; 80053; 80306; 80307; 81025; 85025; 93005; 97150; 97165; 99285; Q0162

== ENCOUNTER → 2021-12-03 08:30 | Outpatient (BNVA) | payer BC, MEDICAID, SELFPAY | PROVIDERS: PCP Registered Nurse; Visit Provider Nurse Practitioner Women's Health | DX: N92.6 Irregular menstruation, unspecified (principal); Z32.01 Encounter for pregnancy test, result positive | CPT/HCPCS: 81025; 84702 ==

== ENCOUNTER → 2021-12-16 14:24 | Outpatient (BNVA) | payer BC, MEDICAID, SELFPAY | PROVIDERS: PCP Registered Nurse; Visit Provider Obstetrics & Gynecology | DX: Z34.91 Encounter for supervision of normal pregnancy, unspecified, first trimester (principal); Z3A.08 8 weeks gestation of pregnancy | CPT/HCPCS: 76817 ==

== ENCOUNTER → 2022-02-05 10:35 | Outpatient (BNVA) | payer BC, MEDICAID, SELFPAY | PROVIDERS: PCP Registered Nurse; Visit Provider Obstetrics & Gynecology | DX: Z34.90 Encounter for supervision of normal pregnancy, unspecified, unspecified trimester (principal) | CPT/HCPCS: 36415; 80307; 83036; 84315; 85027; 86592; 86762; 86803; 86850; 86900; 87086; 87340; 87491; 87591; 87806 ==

== ENCOUNTER 2022-07-31 20:56 | Inpatient (IN) | payer BC, MEDICAID, SELFPAY ==
[2022-07-31] VITALS (55 sets, daily range): BP systolic 124–212; BP diastolic 58–128; PULSE 72–153; RESP 16; O2SAT 92–100; BMI 58.7
[2022-07-31 12:28] LABS: Basophils % 0.1 %; Eosinophils % 0.3 %; Hematocrit 33.3 % (37.0-47.0); Hemoglobin 10.8 g/dL (11.5-15.3); Lymphocytes % 20.5 %; Mean Corpuscular HGB Conc 32.4 g/dL (30.0-36.0); Mean Corpuscular Hemoglobin 27.3 pg (28.0-34.0); Mean Corpuscular Volume 84.1 fl (81-99); Mean Platelet Volume 9.9 fL (7.4-10.4); Monocytes # 0.7 10^3/uL (0.2-0.9); Monocytes % 6.8 %; Neutrophils # 7.08 10^3/uL (1.8-8.0); Neutrophils % 71.9 %; Nucleated Red Blood Cells % 0 %; Platelet Count 273 10^3/cmm (130-400); Red Blood Count 3.96 10^6/uL (4.1-5.3); Red Cell Distribution Width 14.1 % (12.1-15.1); White Blood Count 9.9 10^3/uL (4.5-13.0)
[2022-07-31 12:39] LABS: Urine Creatinine 112 mg/dL (28-217); Urine Protein Random 13 mg/dL
[2022-07-31 13:03] LABS: UPRO/UCREAT Ratio 0.12 mg/mg CR
[2022-07-31 13:05] LABS: Add Urine Culture? No; Bacteria Urine 2+ /hpf; Bilirubin Urine Neg (Negative); Blood Urine Neg (Negative); Glucose Urine UA Norm (Normal); Ketones Urine Negative (Negative); Leukocyte Esterase Urine 2+ (Negative); Nitrate Urine Negative (Negative); Protein Urine Neg (Negative); Specific Gravity, Urine 1.015 (1.005-1.030); Squamous Epithelial Cell Urine 25-40 /hpf (0-5); Urine Appearance Hazy (CLEAR); Urine Color Yellow (Yellow); Urobilinogen Urine Norm (Negative); WBC Urine 25-40 /hpf (0-5); pH Urine 6 (5-7)
[2022-07-31 13:22] LABS: Alanine Aminotransferase 10 U/L (0-33); Albumin Level 3.1 g/dL (3.5-5.2); Alkaline Phosphatase 145 U/L (35-105); Anion Gap 17.6 (5-19); Aspartate Amino Transferase 14 U/L (0-32); Blood Urea Nitrogen 5 mg/dL (6-20); Calcium 8.6 mg/dL (8.5-10.5); Carbon Dioxide 18 mmol/L (22-29); Chloride 102 mmol/L (98-107); Globulin 3.5 g/dL (1.3-4.6); Glomerular Filtration Rate 157.3 mL/min (90-130); Glucose 120 mg/dL (65-115); Osmolality Calculated 276 mOsm/kg (285-295); Potassium 3.6 mmol/L (3.5-5.1); Sodium 134 mmol/L (136-145); Total Bilirubin 0.2 mg/dL (0.15-1.2); Total Protein 6.6 g/dL (6.6-8.7); Uric Acid 4.3 mg/dL (2.4-5.7)
--- NOTE | 2022-07-31 14:01 | P.HP_ITS ---
Providers/Chief Complaint Admitting Physician: Dr. 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 Initially her systolic blood pressure was in the 150s however monitoring the patient did have some severe blood pressures greater than 160. Patient has had some elevated blood pressures at the last doctor visits but denies any previous issues with her blood pressure. Patient had a normal and delivery previous with no evidence of hypertension or preeclampsia. Patient's lab work has been unremarkable. Patient's care has been unremarkable as well. The patient is not having any contractions but still feeling baby move. Patient denies any loss of fluid or vaginal bleeding. Patient was scheduled for an induction in 2 days. Present Details : 2 Para: 1 Review of Systems Const: Reports: chills and fatigue; Denies: fever(s), body aches or change in appetite ENMT: Reports: ear or mastoid pain, nasal congestion, post nasal drip and sinus pain; Denies: throat pain, odynophagia or ear discharge Card: Denies: chest pain or palpitations Resp: Reports: non-productive cough; Denies: dyspnea or wheezing GI: Denies: abdominal pain, nausea, vomiting or diarrhea Skin/Breast: Denies: rash Medications/Allergies Home Medications Medication Instructions Recorded Confirmed Last Taken Type acetaminophen 500 mg tablet 1,000 mg PO Q4H PRN Pain 04/01/21 04/17/22 10/17/21 History prenat.vits,matias,qem-cyat-cbgya 1 tab PO DAILY 12/03/21 04/17/22 Unknown History sertraline 100 mg tablet 150 mg PO DAILY 02/05/22 04/17/22 Unknown History amoxicillin 500 mg capsule 1,000 mg PO Q12H 10 days #40 caps 04/17/22 04/17/22 U nknown Rx Allergies Allergy/AdvReac Type Severity Reaction Status Date / Time No Known Allergies Allergy Verified 04/17/22 19:14 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 PFSH: Medical History (Updated 07/31/22 @ 14:08 by Aravind Mcgee MD) Anxiety Cluster B personality disorder in adult Major depressive disorder, recurrent No pertinent past medical history neghx: htn,dm,thyroid,dvt/pe PCP: Kena Arroyo Suicide attempt by multiple drug overdose (~09/2021) Surgical History (Updated 12/03/21 @ 09:22 by Helen Abad APN, KAREN) History of cholecystectomy (~2018) OZH Family History Father Hypertension Mother Hypertension Thyroid disease Denies family history of Colon cancer Ovarian cancer Diabetes Heart disease Hypercholesteremia Breast cancer Uterine cancer Stroke Social History (Updated 12/03/21 @ 07:57 by Sindy Khan) Smoking and tobacco status: former smoker History History History 2 Term 1 0 Miscarriages/Ectopic 0 Living Children 1 Care ALIREZA Calculator Estimated Delivery Date Method Current WG Current Estimate 07/28/22 LMP (Certain) 40w 3d Vitals/I&O/Wt Last Vital Signs Pulse 85 07/31/22 13:43 BP 157/86 07/31/22 13:43 Weight last 48 hrs Weight 160.118 kg Physical Exam Const: COMMON NORMALS: no acute distress and alert HENMT: COMMON NORMALS: normocephalic Resp: COMMON NORMALS: normal respiratory effort and No retractions Cardio: COMMON NORMALS: no JVD, regular rate and regular rhythm Extremity: COMMON NORMALS: no clubbing, cyanosis or edema Neuro: COMMON NORMALS: moves all extremities, no focal motor deficits and no sensory deficits noted Psych: COMMON NORMALS: mental status grossly normal Skin: GENERAL SKIN EXAM: no rashes or lesions noted Data 07/31/22 12:02 07/31/22 12:02 A&P Assessment and plan (1) Obesity affecting in third trimester: (2) Hypertension affecting in third trimester: Lab work obtained at arrival was normal and there is no protein in the urine. Patient has had 2 severe elevations in her systolic blood pressure. We will start the patient on labetalol protocol. We will also go ahead and proceed with induction of labor. Discussed Cytotec with the patient since the cervix is unfavorable and the patient was agreeable to proceed. (3) Term : Attestations Medical Necessity Statement*: Anticipate greater than 2 midnight stay Coding Level of Care Code Acute Code for Chg Fwd Diagnoses Obesity affecting in third trimester O99.213 Hypertension affecting in third trimester O16.3 Term Z34.90
[2022-07-31] MEDS: miSOPROStol 100 mcg tablet 25 MCG VAGINAL (15:35)
[2022-07-31 21:21] LABS: Amphetamines Screen Urine Negative (Negative); Barbiturates Screen Urine Negative (Negative); Benzodiazepines Screen Urine Negative (Negative); Cocaine Screen Urine Negative (Negative); Opiate Screen Urine Negative (Negative); PCP Screen Urine Negative (Negative); THC Screen Urine Negative (Negative)
--- NOTE | 2022-07-31 21:32 | P.ANESASSM_ITS ---
Pre-Anesthetic Assessment Height/Weight: Height 1.65 m Weight 160.118 kg Pulse Resp BP O2 Del Method 72 16 182/93 07/31/22 21:28 07/31/22 11:51 07/31/22 21:28 07/31/22 14:07 Preop Diagnosis: IUP epidural Familial anesthetic complications: none Was Beta Fany taken within 24 hours: N/A Was Clonidine taken within 24 hours: N/A Last Intake: 15:00 Social No alcohol and No tobacco Exam alert, oriented x 3, clear to auscultation bilaterally and regular rate & rhythm Airway Submandibular: within normal limits Cervical ROM: within normal limits Mallampati: Class II Dentition: full Pulmonary None reported CV/HEM Hypertension (PIH) None reported Hepatic None reported GI Gastroesophageal Reflux Disease Metabolic Morbid Obesity [facility] None reported Neuropsych Anxiety, Bipolar and Depression Anesthetic Plan ASA status: 2 Anesthesia: Regional (specify below) (epidural) Risk of > 500 ml blood loss (7ml/kg in children): No Medications/Allergies Home Medications Medication Instructions Recorded Confirmed Last Taken Type acetaminophen 500 mg tablet 1,000 mg PO Q4H PRN Pain 04/01/21 04/17/22 10/17/21 History prenat.vits,matias,tgp-mstn-gdqdi 1 tab PO DAILY 12/03/21 04/17/22 Unknown History sertraline 100 mg tablet 150 mg PO DAILY 02/05/22 04/17/22 Unknown History amoxicillin 500 mg capsule 1,000 mg PO Q12H 10 days #40 caps 04/17/22 04/17/22 Unknown Rx Allergies Allergy/AdvReac Type Severity Reaction Status Date / Time No Known Allergies Allergy Verified 04/17/22 19:14 Current Medications Generic Name Dose Route Start Last Admin Trade Name Freq PRN Reason Stop Dose Admin Misoprostol 25 mcg 07/31/22 14:15 07/31/22 15:35 Misoprostol 100 Mcg Tablet VAGINAL 07/31/22 22:16 25 mcg Q4H CHANTEL Administration PFSH Anesthesia Medical History (Updated 07/31/22 @ 14:08 by Aravind Mcgee MD) Anxiety Cluster B personality disorder in adult Major depressive disorder, recurrent No pertinent past medical history neghx: htn,dm,thyroid,dvt/pe PCP: Kena Arroyo Suicide attempt by multiple drug overdose (~09/2021) Surgical History (Updated 12/03/21 @ 09:22 by Helen Abad APN, KAREN) History of cholecystectomy (~2019) OZH Family History Father Hypertension Mother Hypertension Thyroid disease Denies family history of Colon cancer Ovarian cancer Diabetes Heart disease Hypercholesteremia Breast cancer Uterine cancer Stroke Social History (Updated 12/03/21 @ 07:57 by Sindy Khan) Smoking and tobacco status: former smoker Female Reproductive History : 2 Data Anesthesia 07/31/22 12:02 07/31/22 12:02 Short CBC 07/31/22 Range/Units 12:02 WBC 9.9 (4.5-13.0) 10^3/uL Hgb 10.8 L (11.5-15.3) g/dL Hct 33.3 L (37.0-47.0) % MCV 84.1 (81-99) fl Plt Count 273 (130-400) 10^3/cmm Neut % (Auto) 71.9 % Neut # (Auto) 7.08 (1.8-8.0) 10^3/uL BMP 07/31/22 12:02 Sodium 134 L Potassium 3.6 Chloride 102 Carbon Dioxide 18 L BUN 5 L Creatinine 0.5 Glucose 120 H Calcium 8.6 Liver Function 07/31/22 Range/Units 12:02 Total Bilirubin 0.2 (0.15-1.2) mg/dL AST 14 (0-32) U/L ALT 10 (0-33) U/L Alkaline Phosphatase 145 H (35-105) U/L Albumin 3.1 L (3.5-5.2) g/dL Urine 07/31/22 Range/Units 12:00 Urine Color Yellow (Yellow) Urine Appearance Hazy A (CLEAR) Urine pH 6 (5-7) Ur Specific [place] 1.015 (1.005-1.030) Urine Protein Neg (Negative) Urine Glucose (UA) Norm (Normal) Urine Ketones Negative (Negative) Urine Nitrate Negative (Negative) Urine Bilirubin Neg (Negative) Ur Leukocyte Esterase 2+ H (Negative) Urine RBC 10-15 H (0-2) /hpf Urine WBC 25-40 H (0-5) /hpf Cardiac Studies: No Data to Display
--- NOTE | 2022-07-31 22:11 | ANES.PROC ---
Anesthesia Procedures Procedure/Date: 07/31/22 Epidural: Time Out Performed: Yes Consents Signed: Procedure Consent and NPO Consent Consent: requested by attending/covering physician, from patient, risks and benefits reviewed and patient agrees to proceed Lumbar Level: L3-L4 Epidural position: sitting Epidural procedure: sterile prep of area (betadine), 1% lidocaine to numb the area (3ml), 18 g needle, negative for paresthesia passed, neg for paresthesia, test dose given, 1.5% xylocaine 1:200k epi (3ml/2ml), 0.2% Ropivacaine bolus ml (5ml), placed PCEA, no systemic response, sterile dressing applied, L.U.D. no apparent complications and 0.2% Ropiavacaine @ mls/hr (13ml/hr)
[2022-07-31] MEDS: oxytocin 30 UNIT/500 ML BAG 600 UNIT IV (23:28)
--- NOTE | 2022-07-31 23:50 | PM.DELIVERY ---
Delivery Note: Date of delivery: July 31, 2022 Pre-delivery diagnoses: 21-year-old 2 para 1-0-0-1 at 40 weeks estimated gestational age with elevated blood pressures Post-delivery diagnoses: Status post spontaneous vaginal delivery Procedure: Spontaneous vaginal delivery Estimated blood loss (mL): 100 Pre-Delivery Course: The patient presented to the hospital and was found to have elevated blood pressures. A preeclamptic profile was done which was found to be negative. She did have a few severely elevated blood pressures, but as she calmed down most blood pressures resolved. During the most of her labor there were very few severely elevated blood pressures. She was placed on Cytotec 25 mcg x 1. She had spontaneous rupture of membranes. She then progressed to complete without difficulty. The baby was noted to have some significant decelerations that are happening consistently with each contraction. Delivery: DELIVERY: The patient progressed to complete without difficulty. She delivered a male with a weight of 7 pounds 13 ounces with Apgars of 8, 9. The baby was delivered from the FERMIN position and placed on the mother's abdomen. The cord was then clamped and cut. There was a nuchal cord x2 that were both reduced prior to delivery of the head. There was no meconium but the baby did have a bowel met shortly after delivery. The placenta and 3 vessel cord were delivered intact shortly thereafter. The perineum and vaginal vault were carefully examined. No lacerations were noted. Both the mother and the baby were in stable condition. Post-Delivery Status: Good History History History 2 Term 1 0 Miscarriages/Ectopic 0 Living Children 1 A&P Assessment and plan (1) 40 weeks gestation of : The patient appears to be doing very well. We will monitor her blood pressures postdelivery to see if they begin to move up again. (2) Hypertension affecting in third trimester: (3) Spontaneous vaginal delivery: Coding Level of Care Code Acute Code for Chg Fwd Diagnoses 40 weeks gestation of Z3A.40 Hypertension affecting in third trimester O16.3 Spontaneous vaginal delivery O80
[2022-08-01] VITALS (63 sets, daily range): BP systolic 124–203; BP diastolic 55–100; PULSE 62–101; RESP 16–18; TEMP 36.1–36.6
[2022-08-01] MEDS: sertraline 50 mg Tablet 150 MG PO (00:46)
[2022-08-01] MEDS: lanolin oint 7 gm 1 APPLIC TOPICAL (02:09)
[2022-08-01] MEDS: benzocaine-menthol 78 gm Canister 1 SPRAY TOPICAL (02:09)
[2022-08-01] MEDS: magnesium sulfate premix 4 GM/100 ML PREMIX IV (05:13)
[2022-08-01] MEDS: labetalol 5 mg/mL SDV 20mL 20 MG IVP ×2 (05:13→09:56)
[2022-08-01] MEDS: dextrose 5%-lactated ringers 1,000 ML 125 ML IV (05:13)
[2022-08-01] MEDS: magnesium sulfate premix 20 GM/500 ML BAG IV (05:30)
--- NOTE | 2022-08-01 07:58 | ANE.PACU2 ---
Inpatient post-anesthesia follow up: Airway intact: Yes Vital signs: Temperature 97.0 F Pulse Rate 74 Respiratory Rate 17 Blood Pressure 141/75 Pulse Oximetry 100 Oxygen Delivery Me thod Room Air Oxygen Flow Rate Fraction of Inspir ed Oxygen Hydration adequate: Yes Nausea and vomiting: No Pain level: 2 Mental status: Baseline
--- NOTE | 2022-08-01 09:40 | PM.OBGYPN ---
SAMPLE COORDINATOR Subjective Subjective: Interval history: Once again, the patient spiked to blood pressures that were in the severe range this morning. As result she was placed on magnesium. She has been diuresing large volumes, so I am hopeful that she is progressing beyond her gestational hypertension. Her bleeding has been within normal limits. She is been breast-feeding adequately. Labor: Station: +2 Amniotic Membrane Status: Ruptured Monitor Mode: External Contraction Pattern: Regular Vitals/I&O/Wt Last Vital Signs Temp 97.0 F L 08/01/22 02:26 Pulse 77 08/01/22 09:38 Resp 17 08/01/22 05:13 BP 163/82 08/01/22 09:38 Pulse Ox 100 07/31/22 23:04 O2 Del Method 07/31/22 14:07 07/31/22 08/01/22 08/01/22 22:59 06:59 14:59 Intake Total 500 / 500 Output Total 2900 / 2900 750 / 750 Balance -2400 / -2400 -750 / -750 Weight last 48 hrs Weight 353 lb Physical Exam Narrative: The patient is alert. She appears comfortable. Her heart has a regular rate and rhythm with no murmurs appreciated. Lungs are clear to auscultation bilaterally. Her fundus is firm and below the umbilicus. Urinary Catheter Management: Roberts: Cath Placed During This Visit: yes Reason for Continuing Indwelling Catheter: Accurate Measurement of Urinary Output in Critically Ill Patients Urinary Catheter Date of Insertion: 08/01/22 Urinary Catheter Time of Insertion: 05:13 Roberts Latex: Cath Placed During This Visit: yes, but has since been removed by the nurse Reason for Continuing Indwelling Catheter: Accurate Measurement of Urinary Output in Critically Ill Patients Urinary Catheter Date of Insertion: 07/31/22 Urinary Catheter Time of Insertion: 22:12 Date Urinary Catheter Removed: 07/31/22 Time Urinary Catheter Discontinued: 23:01 Data 07/31/22 12:02 07/31/22 12:02 A&P Assessment and plan (1) Spontaneous vaginal delivery: Other than her hypertension, she has done well . (2) 40 weeks gestation of : (3) Hypertension affecting in third trimester: We will maintain the patient on magnesium for now. If her blood pressures improved, and she continues to diurese aggressively, I will consider keeping her on a 12-hour regimen. Attestations Medical Necessity Statement*: I anticipate the patient will require 1-2 more night stay in the hospital due to gestational hypertension. Coding Level of Care Code Acute Code for Chg Fwd Diagnoses Spontaneous vaginal delivery O80 40 weeks gestation of Z3A.40 Hypertension affecting in third trimester O16.3
[2022-08-01] MEDS: prenatal vitamin Capsule 1 CAP PO (09:56)
[2022-08-01] MEDS: docusate sodium 100 mg Capsule PO ×2 (09:56→22:01)
[2022-08-01] MEDS: ibuprofen 800 mg tablet PO ×3 (09:56→22:01)
[2022-08-01 12:31] LABS: Hematocrit 31.3 % (37.0-47.0); Hemoglobin 10.1 g/dL (11.5-15.3); Mean Corpuscular HGB Conc 32.3 g/dL (30.0-36.0); Mean Corpuscular Hemoglobin 27.3 pg (28.0-34.0); Mean Corpuscular Volume 84.6 fl (81-99); Platelet Count 266 10^3/cmm (130-400); Red Cell Distribution Width 14.5 % (12.1-15.1); White Blood Count 14.9 10^3/uL (4.5-13.0)
[2022-08-02] VITALS (8 sets, daily range): BP systolic 126–188; BP diastolic 60–91; PULSE 65–82; RESP 15–16; TEMP 36.8
--- NOTE | 2022-08-02 04:30 | P.DS_ITS ---
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 A preeclamptic panel was done and found to be negative. Thankfully, her blood pressure is improved, but due to her gestational age the decision was made to induce the patient. She was placed on Cytotec 25 mcg x 1. She had spontaneous rupture membranes. She progressed to complete and had an unremarkable delivery of a healthy appearing male . After the delivery she once again began having elevated blood pressures, with some being in the severe range. As result she was placed on magnesium. She began diuresing aggressively. Her blood pressure improved. Her magnesium was stopped after 12 hours. She had some difficulty with breast-feeding initially, but has been breast- feeding well. Information Peripartum Data: Infant Delivery Method: Vaginal Physical Exam Narrative: The patient is alert. She appears comfortable. Her heart has a regular rate and rhythm with no murmurs appreciated. Lungs are clear to auscultation bilaterally. Her fundus is firm and below the umbilicus. Urinary Catheter Management: Roberts: Cath Placed During This Visit: yes, but has since been removed by the nurse Reason for Continuing Indwelling Catheter: Decision to DC Catheter Urinary Catheter Date of Insertion: 08/01/22 Urinary Catheter Time of Insertion: 05:13 Date Urinary Catheter Removed: 08/01/22 Time Urinary Catheter Discontinued: 17:50 Roberts Latex: Cath Placed During This Visit: yes, but has since been removed by the nurse Reason for Continuing Indwelling Catheter: Accurate Measurement of Urinary Output in Critically Ill Patients Urinary Catheter Date of Insertion: 07/31/22 Urinary Catheter Time of Insertion: 22:12 Date Urinary Catheter Removed: 07/31/22 Time Urinary Catheter Discontinued: 23:01 History History History 2 Term 1 0 Miscarriages/Ectopic 0 Living Children 1 Discharge Data Studies Completed and Pending Laboratory Results WBC 14.9 10^3/uL (4.5-13.0) H 08/01/22 12:28 RBC 3.70 10^6/uL (4.1-5.3) L 08/01/22 12:28 Hgb 10.1 g/dL (11.5-15.3) L 08/01/22 12:28 Hct 31.3 % (37.0-47.0) L 08/01/22 12:28 MCV 84.6 fl (81-99) 08/01/22 12:28 MCH 27.3 pg (28.0-34.0) L 08/01/22 12: MCHC 32.3 g/dL (30.0-36.0) 08/01/22 12: RDW 14.5 % (12.1-15.1) 08/01/22 12: Plt Count 266 10^3/cmm (130-400) 08/01/22 12: MPV 10.0 fL (7.4-10.4) 08/01/22 12:28 Neut % (Auto) 71.9 % 07/31/22 12:02 Lymph % (Auto) 20.5 % 07/31/22 12:02 Marshall % (Auto) 6.8 % 07/31/22 12:02 Eos % (Auto) 0.3 % 07/31/22 12:02 Baso % (Auto) 0.1 % 07/31/22 12:02 Neut # (Auto) 7.08 10^3/uL (1.8-8.0) 07/31/22 12:02 Lymph # (Auto) 2.0 10^3/uL (1.5-6.5) 07/31/22 12:02 Marshall # (Auto) 0.7 10^3/uL (0.2-0.9) 07/31/22 12:02 Eos # (Auto) 0.0 10^3/uL (0.0-0.8) 07/31/22 12:02 Baso # (Auto) 0.0 10^3/uL (0.0-0.1) 07/31/22 12:02 Nucleated RBC % (auto) 0 % 07/31/22 12:02 Nucleated RBCs # 0.0 /100WBC 07/31/22 12:02 Sodium 134 mmol/L (136-145) L 07/31/22 12:02 Potassium 3.6 mmol/L (3.5-5.1) 07/31/22 12:02 Chloride 102 mmol/L (98-107) 07/31/22 12:02 Carbon Dioxide 18 mmol/L (22-29) L 07/31/22 12:02 Anion Gap 17.6 (5-19) 07/31/22 12:02 BUN 5 mg/dL (6-20) L 07/31/22 12:02 Creatinine 0.5 mg/dL (0.5-0.9) 07/31/22 12:02 GFR Calculation 157.3 mL/min (90-130) H 07/31/22 12:02 Glucose 120 mg/dL (65-115) H 07/31/22 12:02 Calculated Osmolality 276 mOsm/kg (285-295) L 07/31/22 12:02 Uric Acid 4.3 mg/dL (2.4-5.7) 07/31/22 12:02 Calcium 8.6 mg/dL (8.5-10.5) 07/31/22 12:02 Total Bilirubin 0.2 mg/dL (0.15-1.2) 07/31/22 12:02 AST 14 U/L (0-32) 07/31/22 12:02 ALT 10 U/L (0-33) 07/31/22 12:02 Alkaline Phosphatase 145 U/L (35-105) H 07/31/22 12:02 Total Protein 6.6 g/dL (6.6-8.7) 07/31/22 12:02 Albumin 3.1 g/dL (3.5-5.2) L 07/31/22 12:02 Globulin 3.5 g/dL (1.3-4.6) 07/31/22 12:02 Urine Color Yellow (Yellow) 07/31/22 12:00 Urine Appearance Hazy (CLEAR) A 07/31/22 12:00 Urine pH 6 (5-7) 07/31/22 12:00 Ur Specific Rougon 1.015 (1.005-1.030) 07/31/22 12:00 Urine Protein Neg (Negative) 07/31/22 12:00 Urine Glucose (UA) Norm (Normal) 07/31/22 12:00 Urine Ketones Negative (Negative) 07/31/22 12:00 Urine Blood Neg (Negative) 07/31/22 12:00 Urine Nitrate Negative (Negative) 07/31/22 12:00 Urine Bilirubin Neg (Negative) 07/31/22 12:00 Urine Urobilinogen Norm mg/dL (Negative) 07/31/22 12:00 Ur Leukocyte Esterase 2+ (Negative) H 07/31/22 12:00 Urine RBC 10-15 /hpf (0-2) H 07/31/22 12:00 Urine WBC 25-40 /hpf (0-5) H 07/31/22 12:00 Ur Squamous Epith Cells 25-40 /hpf (0-5) H 07/31/22 12:00 Amorphous Sediment Not Reportable 07/31/22 12:00 Urine Bacteria 2+ /hpf (NONE) H 07/31/22 12:00 U Random Total Protein 13 mg/dL 07/31/22 12:00 Urine Creatinine 112 mg/dL (28-217) 07/31/22 12:00 Protein/Creatinin Ratio 0.12 mg/mg CR 07/31/22 12:00 Urine Opiates Screen Negative ng/mL (Negative) 07/31/22 12:00 Ur Barbiturates Screen Negative ng/mL (Negative) 07/31/22 12:00 Ur Phencyclidine Scrn Negative ng/mL (Negative) 07/31/22 12:00 Ur Amphetamines Screen Negative ng/mL (Negative) 07/31/22 12:00 U Benzodiazepines Scrn Negative ng/mL (Negative) 07/31/22 12:00 Urine Cocaine Screen Negative ng/mL (Negative) 07/31/22 12:00 U Marijuana (THC) Screen Negative ng/mL (Negative) 07/31/22 12:00 Vitals Last Vital Signs Temp 97.5 F L 08/01/22 22:03 Pulse 77 08/02/22 03:16 Resp 18 08/01/22 22:03 BP 126/60 08/02/22 03:16 Pulse Ox 100 07/31/22 23:04 O2 Del Method 08/01/22 22:03 Discharge Plan Discharge Patient Disposition: Home Prescriptions: New ibuprofen 800 mg Tablet 800 mg PO TID Qty: 45 0RF Continued sertraline 100 mg tablet 150 mg PO DAILY prenat.vits,matias,[id number] Tablet 1 tab PO DAILY acetaminophen 500 mg Tablet 1,000 mg PO Q4H PRN (Reason: Pain) Discontinued amoxicillin 500 mg capsule 1,000 mg PO Q12H 10 Days Qty: 40 0RF Discharge Orders: Discharge Order (Routine); Ordered 08/02/22 Ordered By: Thong Abreu Referrals: Thong Abreu MD [Physician] - 08/04/22 Discharge Diet: Usual diet Discharge Activity: Limit activity as instructed Patient Instructions: Opioid Safety 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
--- NOTE | 2022-08-02 05:08 | PC.NURSE ---
Improperly fitted cuff
[2022-08-02] MEDS: sertraline 50 mg Tablet 150 MG PO (10:32)
[2022-08-02] MEDS: ibuprofen 800 mg tablet PO (10:33)
[2022-08-02] MEDS: prenatal vitamin Capsule 1 CAP PO (10:33)
[2022-08-02] MEDS: docusate sodium 100 mg Capsule PO (10:33)
== END 2022-08-02 14:00 | disposition home or self-care (01) | DRG 806 ==
LOC: OPOB 20:56 → OBGYN 20:56
PROVIDERS: Family Medicine; Absent Provider Family Medicine; Admitting Provider Family Medicine; PCP Registered Nurse; Visit Provider Family Medicine
DX: O48.0 Post-term pregnancy (principal); F33.9 Major depressive disorder, recurrent, unspecified; Z37.0 Single live birth; Z3A.40 40 weeks gestation of pregnancy; O99.344 Other mental disorders complicating childbirth; O99.214 Obesity complicating childbirth; O13.4 Gestational [pregnancy-induced] hypertension without significant proteinuria, complicating childbirth; O76 Abnormality in fetal heart rate and rhythm complicating labor and delivery; O69.2XX0 Labor and delivery complicated by other cord entanglement, with compression, not applicable or unspecified; K21.9 Gastro-esophageal reflux disease without esophagitis; F41.9 Anxiety disorder, unspecified; F60.89 Other specific personality disorders; Z87.891 Personal history of nicotine dependence; O75.89 Other specified complications of labor and delivery
CPT/HCPCS: 12345; 36415; 51702; 59025; 59409; 80053; 80306; 81001; 82570; 84156; 84550; 85025; 85027; 98960; 99211; J2590; J2795; J3475; J3490; J7121

== ENCOUNTER 2024-10-16 12:07 | Inpatient (IN) | payer SELFPAY ==
[2024-10-16 12:09] VITALS: BP 135/76; PULSE 70; RESP 20; TEMP 36.7; O2SAT 99
--- NOTE | 2024-10-16 12:13 | ED.C_ITS ---
HPI - Psych General: Chief Complaint: Psychiatric Symptoms Stated Complaint: SI Time Seen by Provider: 10/16/24 12:11 Source: patient Mode of arrival: EMS Limitations: no limitations History of Present Illness: Patient is a 23-year-old female here for mental health evaluation. Patient states she has been having extremely labile moods and worsening depression as well as suicidal ideation. She states that she does not want to be here and has no reason for living apart from her 2 kids. She states she is on Zoloft for her depression but this is not helping. This is prescribed by her PCP Dr. Vinita Stewart at [facility]. Patient states she has no specific plan for suicide but states in the past I never had a plan-I just did it alluding to the fact that she has previous overdoses. She is not homicidal. Denies hallucinations. States she has been under a lot of stress recently as she has lost her home (states she got behind on rent and bills) and is now residing with her mother. States she self medicates on the weekends when the children are with their father-uses marijuana and alcohol and stays fucked up all weekend . MD complaint: suicidal ideation and feels depressed Onset (ago): month(s) Duration: constant History of same: Yes Relieving factors: none Context: significant life stressor Associated psychiatric symptoms: depression and suicidal ideation Associated symptoms: Reports depression and suicidal ideation; Deny auditory hallucinations, visual hallucinations or homicidal ideation Treatments prior to arrival: none Related Data Home Medications ?Medication ?Instructions ?Recorded ?Confirmed acetaminophen 500 mg tablet 1,000 mg PO Q4H PRN Pain 1 06/01/20 04/17/22 prenat.vits,matias,bkr-[id number] 1 tab PO DAILY 12/03/21 04/17/22 sertraline 100 mg tablet 150 mg PO DAILY 02/05/22 Previous Rx's ?Medication ?Instructions ?Recorded ibuprofen 800 mg tablet 800 mg PO TID #45 tabs 08/02 Allergies Allergy/AdvReac Type Severity Reaction Status Date / Time No Known Allergies Allergy Verified 04/17/22 19:14 Review of Systems Const: Denies: fever(s), chills, body aches, fatigue or malaise Card: Denies: chest pain, palpitations, lightheadedness or syncope Resp: Denies: dyspnea GI: Denies: abdominal pain, nausea, vomiting or diarrhea Skin/Breast: Denies: rash Neuro: Denies: headache(s) Psych: Reports: anxiety, depression, hopelessness and suicidal ideation; Denies: paranoia, visual hallucinations, auditory hallucinations or homicidal ideation [facility] PFSH: Medical History Anxiety No pertinent past medical history neghx: htn,dm,thyroid,dvt/pe PCP: Kena Arroyo Cluster B personality disorder in adult Major depressive disorder, recurrent Suicide attempt by multiple drug overdose (~09/2021) Surgical History History of cholecystectomy (~2018) [facility] Family History Father Hypertension Mother Hypertension Thyroid disease Denies family history of Colon cancer Ovarian cancer Diabetes Heart disease Hypercholesteremia Breast cancer Uterine cancer Stroke Social History Smoking and tobacco/nicotine status: former use of tobacco/nicotine Physical Exam Const: COMMON NORMALS: no acute distress, patient oriented x3, no limitations, alert and well nourished GENERAL APPEARANCE: cooperative NUTRITIONAL APPEARANCE: obese morbidly obese (BMI 49.6) ORIENTATION/CONSCIOUSNESS: Yes awake, Yes oriented to person, Yes oriented to place and Yes oriented to time Resp: COMMON NORMALS: normal respiratory effort and clear to auscultation bilaterally AUSCULTATION: clear to auscultation bilaterally Cardio: COMMON NORMALS: regular rate and regular rhythm RATE: regular rate RHYTHM: regular rhythm Neuro: COMMON NORMALS: patient oriented x3 SENSORIUM/ORIENTATION: Yes alert, Yes oriented to person, Yes oriented to place and Yes oriented to time Psych: COMMON NORMALS: mental status grossly normal, Normal thought process present, cooperative, normal affect, speech normal, activity/motor behavior normal, denies hallucinations and denies homicidal ideation APPEARANCE: Yes grossly normal ATTITUDE: Yes calm ACTIVITY/MOTOR BEHAVIOR: Yes appropriate eye contact and No psychomotor agitation SPEECH: Yes normal speech MOOD & AFFECT: Yes euthymic mood THOUGHT PROCESS: Normal thought process present THOUGHT CONTENT: Yes Suicidality present MEMORY/COGNITION: Yes memory grossly intact and Yes cognition grossly intact INSIGHT: Good insight present (Psych) JUDGEMENT: Good judgement present (Psych) Course Consultations: Consultation #1: Dr. Myles-accepts to [facility] Vital Signs: Vital signs: Vital Signs Temperature 98.0 F 10/16/24 12:09 Pulse Rate 70 10/16/24 12:09 Respiratory Rate 20 H 10/16/24 12:09 Blood Pressure 135/76 10/16/24 12:09 Pulse Oximetry 99 10/16/24 12:09 Oxygen Delivery Me thod Room Air 10/16/24 12:09 MDM - Psych Medical Decision Making Patient will be admitted to NPU to Dr. Myles. She is voluntary with affidavit. Medical Records I reviewed the patient's medical records. Lab Data I reviewed the patient's lab results. No radiology studies performed this visit Discharge Plan Discharge Patient Disposition: Admitted As Inpatient Clinical Impression: Suicidal ideation Major depressive disorder, recurrent Qualifiers: Active/Remission status: currently active Major depression episode severity: severe Psychotic features: without psychotic features Qualified Code(s): F33.2 - Major depressive disorder, recurrent severe without psychotic features Condition: Stable Coding Level of Care Code ED Sales Agent [employer] for Amador Vera
[2024-10-16 12:48] LABS: Amphetamines Screen Urine Negative (Negative); Barbiturates Screen Urine Negative (Negative); Benzodiazepines Screen Urine Negative (Negative); Cocaine Screen Urine Negative (Negative); Opiate Screen Urine Negative (Negative); PCP Screen Urine Negative (Negative); THC Screen Urine Positive (Negative)
[2024-10-16 12:59] LABS: Basophils % 0.2 %; Eosinophils # 0.1 10^3/uL (0.0-0.8); Eosinophils % 0.8 %; Hematocrit 41.9 % (36-47); Lymphocytes # 2.5 10^3/uL (0.8-4.8); Lymphocytes % 26.6 %; Mean Corpuscular HGB Conc 31.7 g/dL (30-55); Mean Corpuscular Hemoglobin 27.9 pg (27-33); Mean Platelet Volume 9.7 fL (7.4-10.4); Monocytes # 0.6 10^3/uL (0.2-0.9); Monocytes % 5.9 %; Neutrophils # 6.14 10^3/uL (1.8-7.7); Neutrophils % 66.3 %; Nucleated Red Blood Cells % 0 %; Platelet Count 295 10^3/cmm (157-399); Red Blood Count 4.76 10^6/uL (3.85-5.65); Red Cell Distribution Width 14.4 % (12.1-15.1); White Blood Count 9.26 10^3/uL (3.29-11.43)
[2024-10-16 13:13] LABS: HCG, Serum Qual Negative (Negative)
[2024-10-16 13:21] LABS: Acetaminophen < 5.0 ug/mL (10-30); Alanine Aminotransferase 16 U/L (0-33); Albumin Level 4.1 g/dL (3.5-5.2); Alcohol Level < 10 mg/dL (0-10); Alkaline Phosphatase 99 U/L (35-105); Aspartate Amino Transferase 17 U/L (0-32); Blood Urea Nitrogen 9 mg/dL (6-20); Calcium 9.3 mg/dL (8.5-10.5); Carbon Dioxide 23 mmol/L (22-29); Chloride 106 mmol/L (98-107); Creatinine Clr Calc Pharmacy 175.6611; Globulin 3.5 g/dL (1.3-4.6); Glomerular Filtration Rate 104.6 mL/min (90-130); Glucose 89 mg/dL (65-115); Osmolality Calculated 290 mOsm/kg (285-295); Salicylate < 0.3 mg/dL (3-10); Sodium 141 mmol/L (136-145); Total Bilirubin 0.2 mg/dL (0.15-1.2); Total Protein 7.6 g/dL (6.6-8.7)
[2024-10-16 14:36] VITALS: BP 151/83; PULSE 57; RESP 16; TEMP 36.7; O2SAT 99
[2024-10-16] MEDS: nicotine 2 mg Gum BUCCAL ×2 (15:48→21:22)
--- NOTE | 2024-10-16 16:41 | PC.ADMIT ---
[email or web address] Linda Catalan [email or web address] Admission Note:Pt states that she is just struggling in life right now She is having trouble getting in to her provider Vinita Stewart. She would also like to get set up in [facility]. She is living with her mother, brother and her two boys 5&2. She works at [employer]. She states that she just doesn't feel right since having her Zoloft dose increased. She is noticing more mood swings. She rates her depressiona 10/10 and Anxiety 4/10. She is very pleasant. She endorses the use of THC regularly and drinks regularly but not daily. The patient,Meka Nichols,23 y/o, was given written information regarding hospital policies, unit procedures and contact persons. Patient's smoking status: former smoker. Vital Signs - 8 hr 10/16/24 12:09 10/16/24 14:36 10/16/24 14:40 Temperature 98.0 F 98.0 F Pulse Rate 70 57 L Respiratory Rate 20 H 16 Blood Pressure 135/76 151/83 Pulse Oximetry 99 99 Oxygen Delivery Method Room Air Room Air
[2024-10-16] MEDS: hyDROXYzine 25 mg Capsule 50 MG PO (21:22)
[2024-10-16] MEDS: trazodone 50 mg Tablet PO (21:22)
[2024-10-16 22:00] VITALS: BP 108/70; PULSE 60; RESP 16; TEMP 36.6; O2SAT 97
[2024-10-17 06:00] VITALS: BP 123/76; PULSE 74; RESP 16; TEMP 36.4; O2SAT 100
--- NOTE | 2024-10-17 08:18 | P.NPUHP_ITS ---
Providers/Chief Complaint 2 Admitting Physician: Pete Myles MD Primary Care Provider: Vinita Stewart DO Chief Complaint: SI HPI NPU History of Present Illness Meka Nichols is a 23 year old female who presented to the emergency department with the following report: Chief Complaint: Psychiatric Symptoms Stated Complaint: SI Time Seen by Provider: 10/16/24 12:11 Source: patient Mode of arrival: EMS Limitations: no limitations History of Present Illness: Patient is a 23-year-old female here for mental health evaluation. Patient states she has been having extremely labile moods and worsening depression as well as suicidal ideation. She states that she does not want to be here and has no reason for living apart from her 2 kids. She states she is on Zoloft for her depression but this is not helping. This is prescribed by her PCP Dr. Vinita Stewart at [facility]. Patient states she has no specific plan for suicide but states in the past I never had a plan-I just did it alluding to the fact that she has previous overdoses. She is not homicidal. Denies hallucinations. States she has been under a lot of stress recently as she has lost her home (states she got behind on rent and bills) and is now residing with her mother. States she self medicates on the weekends when the children are with their father-uses marijuana and alcohol and stays fucked up all weekend . MD complaint: suicidal ideation and feels depressed Onset (ago): month(s) Duration: constant History of same: Yes Relieving factors: none Context: significant life stressor Associated psychiatric symptoms: depression and suicidal ideation Associated symptoms: Reports depression and suicidal ideation; Deny auditory hallucinations, visual hallucinations or homicidal ideation Treatments prior to arrival: none She was admitted to the neuropsychiatric unit for definitive treatment of those issues. She is known to [facility] psychiatry through inpatient and outpatient services. Her last treatment was inpatient back in 2021 and an excerpt of that note is included below for historical context. She presents today reporting: Chief complaint Experiencing worsening depression and anxiety, with mood fluctuations suggestive of bipolar episodes, despite recent increase in Zoloft dosage. History of the present complaint The patient reports experiencing significant mood fluctuations, describing episodes that feel like bipolar episodes. These episodes involve rapid mood changes, sometimes occurring within the same day. The patient mentions feeling happy at times, but these feelings can quickly shift, contributing to a sense of not feeling like themselves. The patient has been feeling particularly depressed, with worsening anxiety and depression over the past few months. The patient has been taking Zoloft, with the dosage increased from 150 mg to 200 mg earlier this year, less than six months ago. Initially, the increase seemed to help, but the patient feels that the medication has not been effective in recent months. The patient has a history of being in a psychiatric hospital three years ago and has not had consistent outpatient treatment since then. The patient was seeing a counselor once a week in [facility] but has not continued this recently. The patient's primary care physician (PCP) has been prescribing the Zoloft, although the patient has not been able to see the doctor recently. The patient reports a history of self-injurious behavior, including cutting. There are days when the patient feels paranoid, although they do not report experiencing psychotic symptoms such as hearing voices or seeing things. The patient has been diagnosed with depression and anxiety in the past. In terms of substance use, the patient reports vaping nicotine and drinking heavily, with alcohol consumption starting at age 13 and increasing to every weekend and sometimes during the week. The patient also smokes marijuana daily, having started in their teens. The patient occasionally uses other substances on weekends but does not specify which ones. There is no history of drug and alcohol treatment, DUIs, or related charges. The patient has experienced significant life changes over the past three years, including the end of a relationship with the father of their two children, aged 5 and 2. The patient lost their own place of residence but now has a vehicle and a new partner. 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 The patient has experienced changes in friendships, losing and gaining friends over this period. Despite these changes, the patient has maintained their medication regimen, although they feel it is not sufficiently effective. Mental health history Diagnosed with depression and anxiety. Currently taking Zoloft 200 mg, which was increased from 150 mg earlier this year, less than six months ago. Previously hospitalized in a psychiatric facility three years ago. Has experienced self- injurious behavior, such as cutting. Reports mood fluctuations that may suggest bipolar episodes, but also discussed the possibility of borderline personality disorder. Has not experienced psychotic symptoms like hearing voices or seeing things, though occasionally feels paranoid. Previously attended counseling sessions once a week in [facility] but has not been consistent with therapy recently. Medications have been primarily managed by a primary care physician. Social history Currently in a relationship with a new partner and has two children, both boys aged 5 and 2. Previously in a relationship with the children's father for 6 years, but the relationship has ended. Lost previous housing but now has a vehicle. 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 Reports vaping nicotine and heavy alcohol consumption, starting drinking at age 13 and currently drinking every weekend and sometimes during the week. Cannabis use reported, started in teens, currently smoking daily. Occasional use of other drugs on weekends. Has lost and gained friendships over the past three years. Per her 10/20/2021 [facility] inpatient psychiatric discharge summary: Diagnoses at Discharge Discharge Diagnosis (1) Cluster B personality disorder in adult: Status: Acute (2) Major depressive disorder, recurrent: Status: Acute (3) Suicide attempt by multiple drug overdose: Status: Acute Reason for Visit Reason for Visit: OVERDOSE Brief History: History of Present Illness Meka Nichols is a 20 year old female who presented to the emergency department with the following report: Chief Complaint: Overdose Stated Complaint: OVERDOSE Time Seen by Provider: 10/17/21 08:05 Source: patient and EMS Mode of arrival: EMS Limitations: no limitations History of Present Illness: 20-year-old female presents here with an overdose she states she has had increasing depression and has had a history of an overdose in the past. Patient states that 1 hour ago she ingested multiple pills. She had taken Tylenol phentermine Lexapro and sertraline. EMS states when they arrived there were pills on the floor and she had vomited as well they gave her activated charcoal. She states she was trying to kill herself denies any worsening improving factors. She was admitted to the neuropsychiatric unit for definitive treatment of those issues. She presents today reporting that she is on Zoloft weekly 50 mg p.o. every morning and has been on that for about a month and that she is here because to try to kill her self recently broke up with her boyfriend. Visit for psychiatric inpatient stay she had outpatient services at [facility] but more or less stopped all services for few years and only recently started getting her Zoloft again from her PCP. She smokes and vapes, she has alcohol every now and then, she has marijuana once in a while but had not had it for a while until just recently. She denies cocaine methamphetamine opiates or any other illicit drugs she never had a rehab visit never had a DUI or any possession charges. We reviewed her 08/27/2015 note and she endorsed that it did represent an accurate history for her at that point. She reports that since then she has had this suicide attempt and one other. She reports she has not had self-injurious behavior for few years. She reports that she had had depression in the past and was doing well and with her boyfriend when they broke up things got bad. She reports that he had a fairly chaotic life reporting that she lives with her mom and then they moved in with with his mom and she went to her dad's and then she went to her mom's. 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 This was back in March she still working at [employer] and things are going really well she reports that he lied to her about something was very important and they broke up in June but continue to live together which may for a very chaotic situation. She is currently trying to deal with all the drama and reports that her child will be 2 in November. We discussed the risk-benefit and alternatives of increasing the Zoloft to 100 mg p.o. every morning and possibly adding Lamictal tomorrow after she considers it and she understood agreed proceed as is documented in this note. And that 08/27/2015 note is included below for context. Per her 08/27/2015 [facility] outpatient psychiatric evaluation: [facility] Psychiatric Evaluation Time in: 1545 Time out: 1625 Chief Complaint: Depression History of present illness: Meka is a 14-year-old white female who presents with her mother, Jayde, for the psychiatric evaluation of depression. Meka tells me that she started to become sad about 4 years ago after the of her grandmother. This is correlated in time with what her mother became severely depressed herself and went on Zoloft. Things were fairly stagnant until about 2 years ago when she became severely melancholic. Since that time she has had difficulties with poor focus, worsening grades, low energy, difficulty sleeping, anhedonia, lack of motivation, low self-esteem, and a depressed mood. She frequently cries. She has passive thoughts of from time to time, but she denies any desire or plan to ever in her life and tells me that she would never do that because I wouldn't want to leave my mom . She has never been manic or hypomanic and she is having no mixed symptomatology right now. She tells me that she is anxious, but I'm unclear if she actually has an anxiety disorder. She tends to worry about other people and she feels guilty about things that they're going through. I think this is actually a symptom of her depression. I di her best friend is her 16-year-old brother and from what she and her mother described, it sounds like he is quite depressed himself. I'm concerned that they may both be leading a depressogenic lifestyle. I did notice that Meka is overweight and has a thick neck. She does have occasional headaches, she falls asleep in class, and she is quite tired. She denies any snoring or waking up gasping for air. Her mother has private insurance and has not met her deductible yet so we are not going to order a sleep study given the fact that she doesn't snore or gasp for air. However, if she doesn't respond to antidepressants that her mother and I have agreed to do a sleep study at that time. Past Psychiatric History: No hospitalizations or suicide attempts. She does have long history of self-mutilation this started about 2 years ago, she has not cut herself in the last couple of months. Family Psychiatric History: Her grandmother suffered from depression. Her mother is also suffered from depression and has been on Zoloft for the last few years and states without Zoloft I would probably be , it's a miracle medicine . There is no family history of suicide. Past Medical History: No ongoing medical problems. Substance Use History: She has experimented with alcohol, but she has never had a substance use disorders she denies the use of any other illicits. Social History: Her mother denies being exposed to any drugs or toxins while . There were no problems with the or period. She met her major development milestones on time. She has never been exposed to physical or sexual abuse. Her parents when she was young and she lives with her mother and her 16-year-old brother here in [facility] along with her pet dog. Her brother is going through depression himself. She is in the seventh grade and she gets fairly average grades and she does not have an IEP. She is involved in many extracurricular activities including [employer], choir, band, and sports. The family does not attend adventist. She has never had legal problems. There are no firearms at home. Hospital Course She quickly acclimated to the individual, group and and milieu therapies provided. She was agreeable to increasing her Zoloft from 50 mg to 100 mg p.o. daily and had a positive response. She worked with the treatment team to get reconnected to [facility] which she has been connected with them in the past. Additionally she began working with her ask to possibly reconcile or least improved upon their communication. She was very happy with the strides there was a during the hospitalization and was able to contract for safety outside the hospital prior to discharge. She had significant improvement over presentation. During the hospitalization, patient had routine laboratory studies which were within normal limits except for few outliers. Additionally there was a general medical evaluation which was also within normal limits and revealed no new acute processes. Discharge Summary: At the time of discharge, she denied psychosis or lethality. Mood and anxiety were well managed. Patient endorsed a plan to avoid all drugs of abuse and follow-up with the aftercare recommendations of the treatment team. Patient was evaluated and deemed to be absent credible lethality, and had achieved the maximum benefit from an inpatient hospitalization, so was discharged. Meds NPU Home Medications ?Medication ?Instructions ?Recorded ?Confirmed ?Last Taken ?Type sertraline 100 mg tablet 150 mg PO DAILY 02/05/22 Unknown History etonogestrel 0.12 mg-ethinyl See Rx Instructions .Rout e .COMPLEX 10/16/24 10/16/24 Unknown History estradiol 0.015 mg/24 hr vaginal ring (Elu[facility]ng) Allergies Allergy/AdvReac Type Severity Reaction Status Date / Time No Known Allergies Allergy Verified 04/17/22 19:14 PFSH NPU 2 PFSH: Medical History Anxiety No pertinent past medical history neghx: htn,dm,thyroid,dvt/pe PCP: Kena Arroyo Cluster B personality disorder in adult Major depressive disorder, recurrent Suicide attempt by multiple drug overdose (~09/2021) Surgical History History of cholecystectomy (~2018) [facility] Family History Father Hypertension Mother Hypertension Thyroid disease Denies family history of Colon cancer Ovarian cancer Diabetes Heart disease Hypercholesteremia Breast cancer Uterine cancer Stroke Social History Smoking and tobacco/nicotine status: former use of tobacco/nicotine Mental Status Exam 2 MSE Comments: This is an obese versus morbidly obese white female in hospital scrubs with adequate grooming and eye contact. No abnormal movements except for psychomotor retardation. Cooperative with exam in mild to moderate distress. Speech was slightly decreased rate and volume. Mood described as depressed and anxious, affect congruent and slightly subdued. Thought process organized, thought content: patient denies suicidal or homicidal ideation but endorsed some suicidal thinking prior to admission, there were no delusions reported or noted, she denied any auditory or visual hallucinations. Reports worsening anxiety and depression, with current medication (Zoloft) not effectively managing symptoms. Describes mood fluctuations, feeling happy at times but experiencing rapid mood changes. History of self-injurious behavior noted, but no current suicidal ideation reported. Attention and concentration were intact and memory appeared reliable but none were formally tested. She?s alert and oriented times three. Insight and judgment appeared fair and impulse control appeared limited. Vitals/I&O/Wt Last Vital Signs Temp 97.5 F L 10/17/24 06:00 Pulse 74 10/17/24 06:00 Resp 16 10/17/24 06:00 BP 123/76 10/17/24 06:00 Pulse Ox 100 10/17/24 06:00 O2 Del Method Room Air 10/17/24 06:00 Weight last 48 hrs Weight 135.171 kg Data NPU 10/16/24 12:43 10/16/24 12:43 A&P Assessment and plan (1) Suicide attempt by multiple drug overdose: (2) Major depressive disorder, recurrent: (3) Cluster B personality disorder in adult: Plan This is a 23-year-old white female with a long history of depression and cluster B pathology who presented almost 3 years after her last admission reporting that her medication is seemingly ineffective. Major depressive disorder with worsening symptoms despite current treatment with Zoloft. Cluster B pathology suggested by rapid mood fluctuations. Consideration of borderline personality disorder due to mood instability and history of trauma. No evidence of psychotic symptoms. 1. Continue current medication. Increase Zoloft to 250 mg p.o. daily in the morning and start Abilify 5 mg p.o. daily. 2. Continue every 15 minute checks for safety. 3. Encourage individual, group and milieu therapies. 4. Encourage sober living treatment after discharge at the highest level of care to which he is willing to commit. 5. Obtain collateral information. PDMP PDMP Reviewed: Not Reviewed Involuntary Hold Information 2 96 Hour Hold: 96 Hour Involuntary Admission: Yes Attestations NPU 2 Medical Necessity Statement*: Inpatient hospitalization is medically necessary and the clinically appropriate intervention at this time. We will monitor medication to make changes as indicated. Patient will be in the hospital for over two midnights. Likely length of stay 3 to 5 days. Coding Level of Care Code Acute Code for g Fwd Diagnoses Suicide attempt by multiple drug overdose T50.912A Major depressive disorder, recurrent F33.2 Active/Remission status: currently active Major depression episode severity: severe Psychotic features: without psychotic features Cluster B personality disorder in adult F60.9
--- NOTE | 2024-10-17 08:37 | PC.OT ---
OT EVAL ATTEMPTED; PATIENT SOUND ASLEEP AND DID NOT AWAKE WITH VERBAL STIMULI
[2024-10-17 13:49] VITALS: BP 93/50; PULSE 60; RESP 15; O2SAT 97
[2024-10-17] MEDS: nicotine 2 mg Gum BUCCAL (14:44)
[2024-10-17 20:55] VITALS: BP 106/71; PULSE 78; RESP 17; TEMP 36.4; O2SAT 97
[2024-10-17] MEDS: ARIPiprazole 10 mg Tablet 5 MG PO (21:25)
[2024-10-17] MEDS: trazodone 50 mg Tablet PO (21:25)
[2024-10-17] MEDS: hyDROXYzine 25 mg Capsule 50 MG PO (21:26)
[2024-10-18 06:00] VITALS: BP 104/66; PULSE 82; RESP 16; TEMP 37.2; O2SAT 97
--- NOTE | 2024-10-18 06:18 | P.NPUPN_ITS ---
Subjective NPU 2 Subjective: Patient presented today reporting that she is doing okay. She reports that she feels the medications have begun to give her some sense of hope. She reports that she is homesick and missing her children and knows she needs to get back to work. We have discussed the importance of her focusing on actually getting better and know that the other things should take care of themselves. We discussed the process and how long she might still be here as that is now her biggest source of anxiety. She denied any side effects of the new medications or medication changes. Mental Status Exam 2 MSE Comments: This is an obese versus morbidly obese white female in hospital scrubs with adequate grooming and eye contact. No abnormal movements except for psychomotor retardation. Cooperative with exam in mild to moderate distress. Speech was slightly decreased rate and volume. Mood described as depressed and anxious but maybe a little better, affect congruent and slightly subdued. Thought process organized, thought content: patient denies suicidal or homicidal ideation but endorsed some suicidal thinking prior to admission, there were no delusions reported or noted, she denied any auditory or visual hallucinations. Reports worsening anxiety and depression, with current medication (Zoloft) not effectively managing symptoms. Describes mood fluctuations, feeling happy at times but experiencing rapid mood changes. History of self-injurious behavior noted, but no current suicidal ideation reported. Attention and concentration were intact and memory appeared reliable but none were formally tested. She?s alert and oriented times three. Insight and judgment appeared fair and impulse control appeared limited. Vitals/I&O/Wt Last Vital Signs Temp 97.6 F 10/17/24 20:55 Pulse 78 10/17/24 20:55 Resp 17 10/17/24 20:55 BP 106/71 10/17/24 20:55 Pulse Ox 97 10/17/24 20:55 O2 Del Method Room Air 10/17/24 20:55 Weight last 48 hrs Weight 135.171 kg Data NPU 10/16/24 12:43 10/16/24 12:43 A&P Assessment and plan (1) Suicide attempt by multiple drug overdose: (2) Major depressive disorder, recurrent: (3) Cluster B personality disorder in adult: Plan This is a 23-year-old white female with a long history of depression and cluster B pathology who presented almost 3 years after her last admission reporting that her medication is seemingly ineffective. Major depressive disorder with worsening symptoms despite current treatment with Zoloft. Cluster B pathology suggested by rapid mood fluctuations. Consideration of borderline personality disorder due to mood instability and history of trauma. No evidence of psychotic symptoms. 1. Continue current medication. Increased Zoloft to 250 mg p.o. daily in the morning and started Abilify 5 mg p.o. daily. 2. Continue every 15 minute checks for safety. 3. Encourage individual, group and milieu therapies. 4. Encourage sober living treatment after discharge at the highest level of care to which he is willing to commit. 5. Obtain collateral information. PDMP PDMP Reviewed: Not Reviewed Involuntary Hold Information 2 96 Hour Hold: 96 Hour Involuntary Admission: Yes Attestations NPU 2 Medical Necessity Statement*: Inpatient hospitalization is medically necessary and the clinically appropriate intervention at this time. We will monitor medication to make changes as indicated. Likely length of stay 1-4 days. Coding Level of Care Code Acute Code for g Fwd Diagnoses Suicide attempt by multiple drug overdose T50.912A Major depressive disorder, recurrent F33.2 Active/Remission status: currently active Major depression episode severity: severe Psychotic features: without psychotic features Cluster B personality disorder in adult F60.9
[2024-10-18] MEDS: ARIPiprazole 10 mg Tablet 5 MG PO (08:25)
[2024-10-18] MEDS: sertraline 50 mg Tablet PO (08:25)
[2024-10-18] MEDS: sertraline 100 mg Tablet 200 MG PO (08:26)
[2024-10-18] MEDS: nicotine 2 mg Gum BUCCAL (13:57)
[2024-10-18 14:00] VITALS: BP 140/93; PULSE 77; RESP 18; TEMP 36.6; O2SAT 95
[2024-10-18 20:37] VITALS: BP 136/95; PULSE 83; RESP 16; TEMP 37.1; O2SAT 93
[2024-10-18] MEDS: hyDROXYzine 25 mg Capsule 50 MG PO (20:49)
[2024-10-18] MEDS: trazodone 50 mg Tablet PO (20:49)
[2024-10-19 06:00] VITALS: BP 117/76; PULSE 60; RESP 16; O2SAT 97
[2024-10-19] MEDS: ARIPiprazole 10 mg Tablet 5 MG PO (08:32)
[2024-10-19] MEDS: sertraline 100 mg Tablet 200 MG PO (08:33)
[2024-10-19] MEDS: sertraline 50 mg Tablet PO (08:33)
[2024-10-19] MEDS: nicotine 2 mg Gum BUCCAL ×2 (08:37→15:07)
[2024-10-19 14:00] VITALS: BP 124/81; PULSE 71; RESP 16; TEMP 36.8; O2SAT 98
[2024-10-19 15:51] VITALS: BP 124/81; PULSE 71; RESP 16; TEMP 36.8; O2SAT 98
== END 2024-10-19 16:37 | disposition home or self-care (01) | DRG 885 ==
LOC: ER 12:48 → NP 13:10
PROVIDERS: Admitting Provider Psychiatry & Neurology Psychiatry; Emergency Provider Physician Assistant; PCP Family Medicine; Visit Provider Psychiatry & Neurology Psychiatry
DX: F33.2 Major depressive disorder, recurrent severe without psychotic features (principal); R45.851 Suicidal ideations; F60.9 Personality disorder, unspecified; Z91.52 Personal history of nonsuicidal self-harm; F17.290 Nicotine dependence, other tobacco product, uncomplicated; F41.9 Anxiety disorder, unspecified
CPT/HCPCS: 36415; 80053; 80306; 80307; 84703; 85025; 97150; 97165; 99285; J9999

== ENCOUNTER 2025-01-10 16:48 | Emergency (ER) | payer BC, MEDICAID, SELFPAY ==
--- OUTSIDE RECORDS SUMMARY | 2025-01-10 16:56 | XMS_ITS | Clinical Summary ---
Author Organization [facility] Address [address] [place] [address] Care Team Providers Care Filter Changing Technician Name Role Phone Sam Karen Teresa GREENE Primary Care Provider Allergies No known active allergies Medications Ethinyl Estradiol-Nore lgestrom (Xulane) 150-35 mcg/24 hr Patch Weekly PATCH Apply 1 Patch to skin as directed see administration instructions. Active buPROPion HCL (Wellbutrin SR) 150 mg Sustained Release 12 hour tabletIndicati ons:Weight gain Take 1 tab daily for 1 week then increase to BID 60 Tablet 5 1 Active Active Problems Problem Noted Date Diagnosed Date Depression with anxiety 08/04/2018 Social History Tobacco Use Types Packs/Day Years Used Date Smoking Tobacco: Never Smokeless Tobacco: Never Tobacco Cessation:Counseling Given: Yes Alcohol Use Standard Drinks/Week Comments No 0 (1 standard drink = 0.6 oz pur e alcohol) Comments No Sex and Gender Information Value Date Recorded Sex Assigned at Not on file Legal Sex Female 2:14 PM CDT Gender Identity Not on file Sexual Orientation Not on file Last Filed Vital Signs Vital Sign Reading Time Taken Comments Blood Pressure 106/58 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 Pulse 89 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 Temperature 36.8 C (98.3 F) 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 Respiratory Rate 18 05/05/2018 3:33 PM 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 Oxygen Saturation 98% 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 Inhaled Oxygen Concentration - - Weight 133.8 kg (295 lb) 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 Height 165.1 cm (5' 5 ) 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 Body Mass Index 49.09 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
--- OUTSIDE RECORDS SUMMARY | 2025-01-10 16:56 | XMS_ITS | Clinical Summary ---
Author Organization [facility] Address [address] [place]angn: [place] [id number] Care Team Providers Care Thread Inspector Name Role Phone Sam Karen Teresa GREENE Primary Care Provider Allergies No known active allergies Medications no.[id number] (AUTOMOBILE UPHOLSTERER-PNV-DHA) 28 mg iron- 1 mg-200 mg CapsuleIndicati ons:Less than 8 weeks gestation of Take 1 Capsule by mouth daily. 90 Capsule 11 11/27/2021 Active sertraline (ZOLOFT) 50 mg tabletIndicatio ns:Depression with anxiety Take 3 Tablets (150 mg) by mouth daily. 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 Gender Identity Not on file Sexual Orientation Not on file Last Filed Vital Signs Vital Sign Reading Time Taken Comments Blood Pressure 130/82 12/25/2021 2:05 PM CDT Pulse 68 12/25/2021 2:05 PM CDT Temperature 36.6 C (97.8 F) 12/25/2021 2:05 PM CDT Respiratory Rate 18 12/25/2021 2:05 PM CDT Oxygen Saturation 99% 12/25/2021 2:05 PM CDT Inhaled Oxygen Concentration - - Weight 132 kg (291 lb) 12/25/2021 2:05 PM CDT Height 165.1 cm (5' 5 ) 12/25/2021 2:05 PM CDT Body Mass Index 48.42 12/25/2021 2:05 PM CDT Plan of Treatment Health Maintenance Due Date Last Done Comments CHLAMYDIA SCREENING (ANNUAL) 11-24 YEARS 2012 HPV VACCINES (1 - 3-dose series) 2016 DTAP/TDAP/TD VACCINES (1 - Tdap) 2020 HEPATITIS B VACCINES (1 of 3 - 19+ 3-dose series) 2020 CERVICAL CANCER SCREENING 2022 HPV/Cotest (21-29) 2022 PAP SMEAR 2022 Preventative Visit- Commercial 05/30/2024 09/02/2021 INFLUENZA VACCINE (#1) 2024 07/22/2020, 2017 RSV VACCINE (60+ or ) (1 - 1-dose 75+ series) [address] [place] [address] [facility] BLUE ACCESS CHOICE Care Teams Thread Inspector Relationship Specialty Start Date End Date Karen Vargas DO [address] [place] [id number] PCP - General Family Practice 04/05/18
[2025-01-10 17:03] VITALS: BP 158/77; PULSE 70; RESP 16; TEMP 36.7; O2SAT 97; BMI 49.9
--- NOTE | 2025-01-10 18:31 | ED_ITS ---
HPI - Abdominal Pain 2 General: Chief Complaint: Abdominal Pain Stated Complaint: R side abd pain, sweaty, nausea Time Seen by Provider: 01/10/25 18:23 Source: patient Mode of arrival: ambulatory Limitations: no limitations History of Present Illness: This patient made her way to the Emergency Department today because of abdominal pain. The abdominal pains been present approximately 2 weeks. It was insidious in onset without any known inciting events. She states she did not have any lifting injury etc. 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 She states the pain has been located predominantly in the right middle abdomen and has been in the same location. She states it is worsened at times by moving about. She states her appetites been diminished but she has been drinking fluids. She denies any fevers or chills. She states her current menstrual period began approximately week ago and is different in that it is a little heavier and has clots associated with her menses. She is not currently using contraception. She denies any history of pelvic infections. She had a prior cholecystectomy and was delivered to children via vaginal delivery. She denies any blood in her stools. She states when she has a bowel movement sometimes it relieves the pressure momentarily. She has been urinating normally. She does have a history of nephrolithiasis at age 16 but has had no subsequent events. Migration to: no migration Exacerbating factors: movement Relieving factors: bowel movement Associated Symptoms: Denies chills, dysuria, fever(s), hematochezia, melena and vomiting Related Data Date of Last Menstrual Period: 01/10/25 Home Medications ?Medication ?Instructions ?Recorded ?Confirmed etonogestrel 0.12 mg-ethinyl See Rx Instructions .Rout e .COMPLEX 10/16/24 10/16/24 estradiol 0.015 mg/24 hr vaginal ring (Cris) Previous Rx's ?Medication ?Instructions ?Recorded aripiprazole 10 mg tablet 5 mg (1/2 x 10 mg) PO DAILY 30 10/19/24 days #15 tabs hydroxyzine pamoate 25 mg capsule 50 mg (2 x 25 mg) PO Q6H PRN 10/19/24 Anxiety 30 days #120 caps sertraline 200 mg capsule 200 mg PO DAILY 30 days #30 caps 10/19/24 sertraline 50 mg tablet 50 mg PO DAILY 30 days #30 t abs 10/19/24 trazodone 50 mg tablet 50 mg PO BEDTIME PRN Sleep 3 0 days 10/19/24 #30 tabs Allergies Allergy/AdvReac Type Severity Reaction Status Date / Time No Known Allergies Allergy Verified 01/10/25 17:06 Review of Systems 2 Const: Denies: fever(s) or chills Eyes: Denies: change in vision ENMT: Denies: throat pain, odynophagia, nasal discharge or nasal congestion Card: Denies: chest pain or palpitations Resp: Denies: dyspnea, productive cough or non-productive cough GI: Reports: abdominal pain; Denies: vomiting, hematochezia or melena : Denies: flank pain, difficulty voiding, dysuria or urinary frequency Musc: Denies: neck pain, back pain, extremity pain or extremity swelling Skin/Breast: Denies: rash or pruritus Neuro: Denies: headache(s), numbness in extremities or weakness in extremities [place]/Lymph: Denies: easy bruising or easy bleeding PFSH ED 2 PFSH: Medical History Psychiatric care Anxiety No pertinent past medical history neghx: htn,dm,thyroid,dvt/pe PCP: Kena Arroyo Cluster B personality disorder in adult Major depressive disorder, recurrent Suicide attempt by multiple drug overdose (~09/2021) Surgical History History of cholecystectomy (~2018) O[facility] Family History Father Hypertension Mother Hypertension Thyroid disease Denies family history of Colon cancer Ovarian cancer Diabetes Heart disease Hypercholesteremia Breast cancer Uterine cancer Stroke Social History Smoking and tobacco/nicotine status: former use of tobacco/nicotine Female Reproductive History: Date of last menstrual period: 01/10/25 Physical Exam 2 Narrative: EXAM NARRATIVE: She is comfortable and cooperative and appears to be in no acute distress and answers questions appropriately. Const: COMMON NORMALS: no acute distress, patient oriented x3, no limitations and healthy appearing GENERAL APPEARANCE: cooperative and comfortable N UTRITIONAL APPEARANCE: overweight HENMT: COMMON NORMALS: Normal nasal mucous membranes and turbinates present, moist oral mucous membranes and oropharynx normal NOSE: Normal nasal mucous membranes and turbinates present Eye: COMMON NORMALS: Equal, round and reactive pupils present, EOMs intact bilaterally and conjunctivae normal CONJUNCTIVA: Yes conjunctivae normal P UPIL: Yes Equal, round and reactive pupils present Neck/C-Spine: COMMON NORMALS: full ROM and no lymphadenopathy Resp: COMMON NORMALS: normal respiratory effort, No use of accessory muscles and clear to auscultation bilaterally AUSCULTATION: clear to auscultation bilaterally Cardio: COMMON NORMALS: regular rate, regular rhythm, No murmurs present (Cardio) and Peripheral pulses 2+ throughout RATE: regular rate RHYTHM: r egular rhythm PERIPHERAL PULSES: Peripheral pulses 2+ throughout GI: INSPECTION: Yes central obesity OTHER: Abdomen is soft but she does have voluntary guarding and tenderness particularly in the right paramedian regions. It is difficult to isolate her findings to an abdominal wall versus intra-abdominal process. Her body habitus somewhat precludes this maneuver. She also has active exacerbation of her symptoms with engagement of the psoas and also internal and external rotation of the right hip. No masses noted on palpation. No skin changes or rash. : COMMON NORMALS: Yes no CVA tenderness BLADDER/KIDNEY EXAM: Yes no CVA tenderness Back/Pelvis: COMMON NORMALS: no CVA tenderness, thoracic and lumbar spine normal to inspection, no thoracic nor lumbar tenderness and thoraco-lumbar ROM normal Extremity: COMMON NORMALS: normal to inspection, full ROM and capillary refill normal Neuro: COMMON NORMALS: patient oriented x3, moves all extremities, no focal motor deficits and no sensory deficits noted Psych: COMMON NORMALS: mental status grossly normal Skin: COMMON NORMALS: no rashes or lesions noted, no wounds and turgor normal GENERAL SKIN EXAM: no rashes or lesions noted and turgor normal Course 2 Reevaluation(s): Reevaluation #1: Patient remains stable without any new findings. She still has abdominal tenderness which seems to be more abdominal wall and is exacerbated by certain movements. 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 and likely abdominal wall strain. This was all shared with the patient we also discussed return precautions in detail. She voiced understanding and is currently stable at this time to be discharged. Time: 21:58 Vital Signs: Vital signs: Vital Signs Temperature 98.1 F 01/10/25 17:03 Pulse Rate 50 L 01/10/25 21:30 Respiratory Rate 18 01/10/25 19:20 Blood Pressure 137/81 01/10/25 21:30 Pulse Oximetry 97 01/10/25 21:30 Oxygen Delivery Me thod Room Air 01/10/25 17:03 MDM - Abdominal Pain Medical Decision Making The patient presented as noted in the HPI with abdominal pain which have been persistent. It was reproduced by certain activities moving twisting turning bending etc. Clinical examination was unrevealing as to refining the potential etiologies of abdominal pain although there was some suggestion of certain musculoskeletal movements may be related. That being said it was important to establish that there was no acute surgical process or other potential pathologic process at play. Therefore laboratories were obtained, imaging was obtained. Laboratories are reassuring without any evidence of concerning findings; her test was negative, no evidence of infection. Imaging was totally reassuring without any evidence of intra-abdominal process such as appendicitis, bowel obstruction, nephrolithiasis etc. No evidence of an ongoing acute surgical condition or other acute emergency medical condition at this time. This was reviewed with the patient and the likely etiology was reviewed and discussed. She voiced understanding. She has been discharged in stable condition with return precautions. Lab Data I reviewed the patient's lab results. 01/10/25 18:49 01/10/25 18:49 Labs/Radiology: Radiology Impressions Abdomen/Pelvis CT 01/10/25 19:16 IMPRESSION: No acute abnormality in the abdomen or pelvis. Laboratory Results WBC 10.58 10^3/uL (3.29-11.43) 01/10/25 18:49 RBC 4.69 10^6/uL (3.85-5.65) 01/10/25 18:49 Hgb 13.00 g/dL (11.27-16.99) 01/10/25 18:49 Hct 40.4 % (36-47) 01/10/25 18:49 MCV 86.1 fl (85-98) 01/10/25 18:49 MCH 27.7 pg (27-33) 01/10/25 18:49 MCHC 32.2 g/dL (30-55) 01/10/25 18:49 RDW 14.6 % (12.1-15.1) 01/10/25 18:49 Plt Count 300 10^3/cmm (157-399) 01/10/25 18:49 MPV 9.5 fL (7.4-10.4) 01/10/25 18:49 Neut % (Auto) 67.9 % 01/10/25 18:49 Lymph % (Auto) 23.8 % 01/10/25 18:49 [place] % (Auto) 6.5 % 01/10/25 18:49 Eos % (Auto) 1.2 % 01/10/25 18:49 Baso % (Auto) 0.3 % 01/10/25 18:49 Neut # (Auto) 7.18 10^3/uL (1.8-7.7) 01/10/25 18:49 Lymph # (Auto) 2.5 10^3/uL (0.8-4.8) 01/10/25 18:49 [place] # (Auto) 0.7 10^3/uL (0.2-0.9) 01/10/25 18:49 Eos # (Auto) 0.1 10^3/uL (0.0-0.8) 01/10/25 18:49 Baso # (Auto) 0.0 10^3/uL (0.0-0.1) 01/10/25 18:49 Nucleated RBC % (auto) 0 % 01/10/25 18:49 Nucleated RBCs # 0.0 /100WBC 01/10/25 18:49 Sodium 135 mmol/L (136-145) L 01/10/25 18:49 Potassium 3.5 mmol/L (3.5-5.1) 01/10/25 18:49 Chloride 100 mmol/L (98-107) 01/10/25 18:49 Carbon Dioxide 22 mmol/L (22-29) 01/10/25 18:49 Anion Gap 16.5 (5-19) 01/10/25 18:49 BUN 10 mg/dL (6-20) 01/10/25 18:49 Creatinine 0.7 mg/dL (0.5-0.9) 01/10/25 18:49 GFR Calculation 103.7 mL/min (90-130) 01/10/25 18:49 Glucose 83 mg/dL (65-115) 01/10/25 18:49 Calculated Osmolality 278 mOsm/kg (285-295) L 01/10/25 18:49 Calcium 9.2 mg/dL (8.5-10.5) 01/10/25 18:49 Total Bilirubin 0.5 mg/dL (0.15-1.2) 01/10/25 18:49 AST 17 U/L (0-32) 01/10/25 18:49 ALT 18 U/L (0-33) 01/10/25 18:49 Alkaline Phosphatase 120 U/L (35-105) H 01/10/25 18:49 Total Protein 8.4 g/dL (6.6-8.7) 01/10/25 18:49 Albumin 4.3 g/dL (3.5-5.2) 01/10/25 18:49 Globulin 4.1 g/dL (1.3-4.6) 01/10/25 18:49 Lipase 20 U/L (13-60) 01/10/25 18:49 HCG, Qual Negative (Negative) 01/10/25 18:49 Urine Color Red (Yellow) A 01/10/25 19:53 Urine Appearance Turbid (CLEAR) A 01/10/25 19:53 Urine pH Not Reportable 01/10/25 19:53 Ur Specific [place] Not Reportable 01/10/25 19:53 Urine Protein Not Reportable 01/10/25 19:53 Urine Glucose (UA) Not Reportable 01/10/25 19:53 Urine Ketones Not Reportable 01/10/25 19:53 Urine Blood Not Reportable 01/10/25 19:53 Urine Nitrate Not Reportable 01/10/25 19:53 Urine Bilirubin Not Reportable 01/10/25 19:53 Urine Urobilinogen Not Reportable 01/10/25 19:53 Ur Leukocyte Esterase Not Reportable 01/10/25 19:53 Urine RBC Too numerous to cnt /hpf (0-2) H 01/10/25 19:53 Urine WBC 0-4 /hpf (0-5) H 01/10/25 19:53 Ur Squamous Epith Cells 0-4 /hpf (0-5) H 01/10/25 19:53 Amorphous Sediment Not Reportable 01/10/25 19:53 Urine Bacteria None /hpf (NONE) 01/10/25 19:53 All radiology interpretation(s) finalized by discharge Discharge Plan Discharge Patient Disposition: Home Clinical Impression: Abdominal pain Condition: Stable Prescriptions: No Action etonogestrel-ethinyl estradiol [EluRyng] 0.12-0.015 mg/24 hr ring See Rx Instructions .ROUTE .COMPLEX Rx Instructions: INSERT 1 RING INTO VAGINA FOR 3 WEEKS. INSERT NEW RING 7 DAYS AFTER REMOVAL OF PRIOR RING. aripiprazole 10 mg Tablet 5 mg PO DAILY 30 Days Qty: 15 1RF hydroxyzine pamoate 25 mg Capsule 50 mg PO Q6H PRN (Reason: Anxiety) 30 Days Qty: 120 1RF sertraline 200 mg capsule 200 mg PO DAILY 30 Days Qty: 30 1RF trazodone 50 mg Tablet 50 mg PO BEDTIME PRN (Reason: Sleep) 30 Days Qty: 30 1RF sertraline 50 mg Tablet 50 mg PO DAILY 30 Days Qty: 30 1RF Discharge Orders: Discharge ED (Routine); Ordered 01/10/25 Ordered By: Jonn Holguin Discharge Diet: Usual diet Discharge Activity: Limit activity as instructed Patient Instructions: Abdominal Pain (ED), Opioid Safety, Pain Management, Patient Portal & Ady Instructions Activity Restrictions/Additional Instructions: As we discussed while you are in the emergency department this evening your evaluation here did not reveal a serious cause for your abdominal pain. Given these findings and the reproducibility of your pain it is likely that this is a strain of one of the abdominal muscles that you have sustained during your work- related activities. That being said however this should improve over the next several days. You may use ibuprofen and/or acetaminophen for pain. If it does not continue to improve over the anticipated next 3 to 5 days or worsens at any time or new symptoms develop such as fever or increasing pain, nausea vomiting diarrhea etc. return to the emergency department immediately for reevaluation. Print Language: Vietnamese Coding Level of Care Code ED Technical Illustrator for Amador Vera
[2025-01-10 18:54] LABS: Hematocrit 40.4 % (36-47); Hemoglobin 13.00 g/dL (11.27-16.99); Mean Corpuscular HGB Conc 32.2 g/dL (30-55); Mean Corpuscular Hemoglobin 27.7 pg (27-33); Mean Corpuscular Volume 86.1 fl (85-98); Nucleated Red Blood Cells % 0 %; Platelet Count 300 10^3/cmm (157-399); Red Blood Count 4.69 10^6/uL (3.85-5.65); White Blood Count 10.58 10^3/uL (3.29-11.43)
[2025-01-10 19:11] LABS: Alanine Aminotransferase 18 U/L (0-33); Albumin Level 4.3 g/dL (3.5-5.2); Alkaline Phosphatase 120 U/L (35-105); Anion Gap 16.5 (5-19); Aspartate Amino Transferase 17 U/L (0-32); Blood Urea Nitrogen 10 mg/dL (6-20); Calcium 9.2 mg/dL (8.5-10.5); Carbon Dioxide 22 mmol/L (22-29); Chloride 100 mmol/L (98-107); Creatinine Clr Calc Pharmacy 174.8884; Globulin 4.1 g/dL (1.3-4.6); Glucose 83 mg/dL (65-115); Lipase 20 U/L (13-60); Osmolality Calculated 278 mOsm/kg (285-295); Potassium 3.5 mmol/L (3.5-5.1); Sodium 135 mmol/L (136-145); Total Protein 8.4 g/dL (6.6-8.7)
--- NOTE | 2025-01-10 19:16 | CTR_ITS ---
PROCEDURE INFORMATION: Exam: CT Abdomen And Pelvis With Contrast Exam date and time: 01/10/2025 8:38 PM Age: 24 years old Clinical indication: Abdominal pain; Localized; Right; Prior surgery; Surgery date: 6+ months; Surgery type: Gb; Additional info: Right sided abdominal pain TECHNIQUE: Imaging protocol: Computed tomography of the abdomen and pelvis with contrast. Radiation optimization: All CT scans at this facility use at least one of these dose optimization techniques: automated exposure control; mA and/or kV adjustment per patient size (includes targeted exams where dose is matched to clinical indication); or iterative reconstruction. Contrast material: OMNIPAQUE 350; Contrast volume: 100 ml; Contrast route: INTRAVENOUS (IV); COMPARISON: CT abdomen pelvis w con* [id number] 04/03/2021 9:50 AM RADIATION DOSE METRICS: Total DLP (mGy-cm): 1310.23 FINDINGS: Lungs: Lung bases are clear. Liver: Normal. Gallbladder and biliary ducts: Surgically absent gallbladder. No biliary dilation. Pancreas: Normal. Spleen: Normal. Adrenal glands: Normal. Kidneys and ureters: Normal. No hydronephrosis. No urolithiasis. Stomach and bowel: Unremarkable. No obstruction. No mucosal thickening. Appendix: Normal. Intraperitoneal space: Unremarkable. No free air. No free fluid. Vasculature: Unremarkable. No abdominal aortic aneurysm. Lymph nodes: No lymphadenopathy. Urinary bladder: Unremarkable as visualized. Reproductive: Unremarkable as visualized. Bones/joints: No acute osseous abnormality. Soft tissues: Unremarkable. CT/CT abdomen pelvis w con* [id number] IMPRESSION: No acute abnormality in the abdomen or pelvis.
[2025-01-10 19:20] VITALS: BP 143/80; PULSE 53; RESP 18; O2SAT 100
[2025-01-10 20:15] LABS: HCG, Serum Qual Negative (Negative)
[2025-01-10 20:41] LABS: Add Urine Microscopic? YES; UA Manual Slide Review YES; UA Slide Review UA Slide Review Perf
[2025-01-10] MEDS: iohexol 350 mg/mL 500 mL Btl (per mL) IV (20:42)
[2025-01-10 20:50] VITALS: PULSE 58; O2SAT 97
[2025-01-10 21:00] VITALS: BP 134/105; PULSE 56; O2SAT 98
[2025-01-10 21:30] VITALS: BP 137/81; PULSE 50; O2SAT 97
[2025-01-10 22:15] VITALS: BP 166/90; PULSE 55; O2SAT 97
== END 2025-01-10 22:17 | disposition home or self-care (01) ==
PROVIDERS: Emergency Provider Emergency Medicine
DX: R10.9 Unspecified abdominal pain (principal); Z87.891 Personal history of nicotine dependence
CPT/HCPCS: 36415; 74177; 80053; 81001; 83690; 84703; 85025; 87086; 96360; 96361; 99285; J7120